=== PATIENT | male | born 1950 | race Caucasian/White ===

== ENCOUNTER 2016-07-11 07:12 | Inpatient (IN) | payer BC, OTHER ==
[~2016-07-11] VITALS: Ht 162.6 cm; Wt 128.8 kg
[~2016-07-11 07:12] MED LIST: AMLO5TAB2 PO; ASPI81TA28 PO; ATOR80TA PO; GABA1CAP4 PO; GLC500 PO; LAMO200T PO; PRAM1TAB6 PO; RIVA1TAB4 PO; SPR25 PO; SRQ100 PO
[2016-07-11] MEDS ORDERED: SODIUM CHLORIDE 0.9% 1000ML 1,000 ML IV ONE (07:30)
[2016-07-11] MEDS ORDERED: SODIUM CHLORIDE 0.9% 1000ML 1,000 ML IV STA (07:36)
[2016-07-11] MEDS ORDERED: ONDANSETRON INJ 2 MG/ML 2 ML VIAL IV STA ×2 (07:36→11:33)
[2016-07-11] MEDS ORDERED: MoRPHine SULFATE 10 MG/ML CARP/VIAL IV STA (07:40)
[2016-07-11 07:48] LABS: BASO % 0.2 %; BASO ABS # 0.03 K/uL (0-0.2); COMPLETE YES; EOS % 0.2 %; HEMATOCRIT 45.5 % (42-52); IG% 0.2 %; LYMPH % 6.7 %; LYMPH ABS # 0.89 K/uL (1.2-3.4); MEAN CELL VOLUME 86.7 fL (80-100); MEAN CORPUSCULAR HEMOGLOBIN 30.5 pg (25-34); MEAN CORPUSCULAR HGB CONC 35.2 g/dl (32-36); MEAN PLATELET VOLUME 10.6 fL (7.4-10.4); MONO % 5.2 %; NEUT % 87.5 %; PLATELET COUNT 221 K/uL (130-400); RED BLOOD COUNT 5.25 M/uL (4.7-6.1); WHITE BLOOD COUNT 13.22 K/uL (4.8-10.8)
[2016-07-11 08:06] LABS: BUN/CREATININE RATIO 14.9 (10-20); CREATININE 1.3 mg/dl (0.60-1.40); POTASSIUM 4.2 mmol/L (3.5-5.1)
[2016-07-11] MEDS ORDERED: OPTIRAY 320 IV PRN ×2 (08:15→17:30)
--- NOTE | 2016-07-11 08:39 | DIAGNOSTIC IMAGING REPORT ---
CHEST ONE VIEW PORTABLE CLINICAL HISTORY: confusion dyspnea COMPARISON STUDY: 01/15/2016 FINDINGS: Moderate cardiomegaly status post median sternotomy. This is stable from the prior exam. Slight plantar left lateral costophrenic angle also chronic. Lungs are clear. IMPRESSION: Chronic change. No acute process. Electronically signed by: Ministerio Gonzalez M.D. 07/11/2016 8:38 AM Dictated Date/Time: 07/11/2016 8:37 AM
[2016-07-11 09:59] LABS: URINE APPEARANCE CLEAR (CLEAR); URINE BILIRUBIN NEG (NEG); URINE COLOR YELLOW; URINE NITRITE NEG (NEG); URINE SPECIFIC GRAVITY 1.023 (1.000-1.030); UROBILINOGEN NEG (NEG)
[2016-07-11 10:03] LABS: MANUAL MICROSCOPIC REQUIRED? NO; REVIEW REQ? NO
--- NOTE | 2016-07-11 11:07 | DIAGNOSTIC IMAGING REPORT ---
ABDOMEN AND PELVIS CT WITH IV CONTRAST CT DOSE: 1108.51 mGycm HISTORY: Pain abd pain TECHNIQUE: Multiaxial CT images of the abdomen and pelvis were performed following the use of intravenous contrast. COMPARISON STUDY: 12/27/2014 FINDINGS: Lung bases are clear. Liver spleen and pancreas are unremarkable. Possible small gallstone the region of the gallbladder neck. Kidneys enhance uniformly. There are negative for hydronephrosis. Bowel pattern is nonobstructive. The appendix is normal. Bladder is midline. IMPRESSION: Small gallstone in the region of the gallbladder neck. Right upper quadrant ultrasonography is suggested. Study otherwise is negative Electronically signed by: Ministerio Gonzalez M.D. 07/11/2016 11:06 AM Dictated Date/Time: 07/11/2016 10:53 AM
--- NOTE | 2016-07-11 13:26 | DIAGNOSTIC IMAGING REPORT ---
ABDOMINAL ULTRASOUND, RIGHT UPPER QUADRANT HISTORY: Gallstone. COMPARISON: Right upper quadrant ultrasound December 28, [address] of the abdomen and pelvis July 11, 2016. FINDINGS: Heterogeneity of the liver is noted. Echogenic foci within the liver suggest trace portal venous gas. There is no biliary ductal dilatation. This study is compromised by suboptimal penetration. The liver is heterogeneous. There may be fatty infiltration of the liver. There is no right hydronephrosis. There is a suspected gallstone within the gallbladder. There is no gallbladder wall thickening. There may be minimal sludge within the gallbladder. IMPRESSION: 1. Branching echogenic foci within the liver consistent with portal venous gas. In retrospect, trace portal venous gas was shown on CT from earlier today with minimal venous gas adjacent to the stomach which may reflect the source. Close clinical monitoring is recommended. Discussed with Robbi Boucher at time of dictation. 2. Cholelithiasis. No evidence of acute cholecystitis. Electronically signed by: Richi Oconnor M.D. 07/11/2016 1:24 PM Dictated Date/Time: 07/11/2016 1:00 PM
[2016-07-11] MEDS ORDERED: METRONIDAZOLE 500MG / 100ML NSS IV STA (13:29)
[2016-07-11] MEDS ORDERED: CIPROFLOXACIN 400MG / 200ML D5W IV STA (13:29)
[2016-07-11] MEDS ORDERED: PROMETHAZINE HCL INJ 12.5 MG in SODIUM CHLORIDE 0.9% 50ML 50 ML IV STA (14:23)
--- NOTE | 2016-07-11 14:42 | Surgery Consultation ---
Consultation Date of Consultation: Jul 11, 2016. Attending Physician: Reason for Consultation: Abdominal pain, nausea, portal venous gas (Ellie Pena PA-C) History of Present Illness Yois presented to emergency department early this morning with complaint of nausea and abdominal pain. Abdominal pain located in mid abdomen, no radiation , currently 7/10 pain, and describes it as a "pressure". States he has had a few episodes of similar pain and nausea in the past few years but nothing was ever found to be the cause. States he was in the emergency room a few years ago with the same symptoms. States the pain got so bad he called the ambulance this time. Denies of any fever, chills, night sweats, vomiting, vomiting blood , change in bowel habits, diarrhea, constipation, or blood in stools. Yosi currently takes 81 mg of aspirin daily as well as Xarelto for atrial fibrillation. No other blood thinning agents. Past Medical history positive for CAD s/p bypass and coronary stenting as well as prediabetes. History of marijuana smoking however no other tobacco or alcohol. States he takes an occasional TUMS for heartburn but does not take daily PPI. No history of gastric ulcer. No history of gallstones or gallbladder problems. No history of abdominal surgeries. (Ellie Pena PA-C) Past Medical/Surgical History Medical Problems: (1) Sinus pause Status: Acute (2) Symptomatic bradycardia Status: Acute (Ellie Pena PA-C) Family History Patient reports no known family medical history. (Ellie Pena PA-C) Patient reports no known family medical history. (Kai Dunne M.D.) Social History Smoking Status: Never Smoker Smokeless Tobacco Use: No Alcohol Use: none Drug Use: marijuana (quit last week) Marital Status: single Housing Status: lives alone Occupation Status: employed (Ellie Pena PA-C) Allergies Coded Allergies: Penicillins (Verified Allergy, Unknown, UNKNOWN, 07/11/16) Sulfa Antibiotics (Verified Allergy, Unknown, `, 07/11/16) CLINT Inhibitors (Verified Adverse Reaction, Mild, COUGH, 07/11/16) Nitroglycerin (Verified Adverse Reaction, Unknown, NO NITROGLYCERIN DERIVATIVES PER DR MIRANDA 09/05/12 ADM-, 02/05/15) PT NOT AWARE OF THIS-HAS NITRO TO USE PRN Home Medications Scheduled Amlodipine Besylate (Norvasc), 1 TAB PO DAILY Aspirin (Aspirin Ec), 81 MG PO DAILY Atorvastatin Calcium (Lipitor), 40 MG PO DAILY Gabapentin (Gabapentin), 300 MG PO BID Lamotrigine (Lamictal), 400 MG PO DAILY Metformin HCl (Metformin HCl), 500 MG PO BID Pramipexole Dihydrochloride (Pramipexole Dihydrochlori), 1 MG PO DAILY Quetiapine Fumarate (Quetiapine Fumarate), 100 MG PO HS Rivaroxaban (Xarelto), 20 MG PO DAILY Spironolactone (Spironolactone), 25 MG PO DAILY Current Inpatient Medications Current Inpatient Medications Medications (Trade) Dose Ordered Sig/Christina Route Start Time Stop Time Status Last Admin Dose Admin Ioversol 100 ml 100 ml UD PRN IV 07/11/16 08:15 07/15/16 08:14 Promethazine HCl/ Sodium Chloride (Phenergan Inj/ Nss 50ml) 50.5 ml @ 204 mls/hr NOW STAT IV 07/11/16 14:23 07/11/16 14:37 (Ellie Pena ., PA-C) Review of Systems Constitutional: No chills, No fever, No sweats Cardiovascular: No chest pain Abdomen: + nausea, + pain, No GI bleeding, No constipation, No diarrhea, No vomiting Genitourinary - Male: No hematuria Endocrine: No fatigue (Ellie Pena ., PA-C) Physical Exam Date Time Temp Pulse Resp B/P Pulse Ox O2 Delivery O2 Flow Rate FiO2 07/11/16 12:14 37.6 82 20 140/98 97 Room Air 07/11/16 11:20 87 18 148/90 95 Room Air 07/11/16 09:35 84 20 149/82 97 Room Air 07/11/16 08:36 88 20 140/98 95 Room Air 07/11/16 07:35 97 07/11/16 07:26 36.6 102 20 152/99 96 Room Air General Appearance: WD/WN, no apparent distress (sleeping when encountered), + obese Head: normocephalic, atraumatic Eyes: sclerae normal ENT: hearing grossly normal Neck: supple Respiratory/Chest: no respiratory distress, no accessory muscle use Abdomen/GI: soft, no pulsatile mass, + tenderness (diffuse in the upper abdomen more so in epigastric region) Neurologic/Psych: alert, normal mood/affect, oriented x 3 Skin: normal color, warm/dry, no rash (Ellie Pena ., GABBY) Laboratory Results Last 24 Hours Test 07/11/16 07:20 07/11/16 09:25 White Blood Count 13.22 K/uL Red Blood Count 5.25 M/uL Hemoglobin 16.0 g/dL Hematocrit 45.5 % Mean Corpuscular Volume 86.7 fL Mean Corpuscular Hemoglobin 30.5 pg Mean Corpuscular Hemoglobin Concent 35.2 g/dl Platelet Count 221 K/uL Mean Platelet Volume 10.6 fL Neutrophils (%) (Auto) 87.5 % Lymphocytes (%) (Auto) 6.7 % Monocytes (%) (Auto) 5.2 % Eosinophils (%) (Auto) 0.2 % Basophils (%) (Auto) 0.2 % Neutrophils # (Auto) 11.56 K/uL Lymphocytes # (Auto) 0.89 K/uL Monocytes # (Auto) 0.69 K/uL Eosinophils # (Auto) 0.02 K/uL Basophils # (Auto) 0.03 K/uL RDW Standard Deviation 45.7 fL RDW Coefficient of Variation 14.3 % Immature Granulocyte % (Auto) 0.2 % Immature Granulocyte # (Auto) 0.03 K/uL Sodium Level 137 mmol/L Potassium Level 4.2 mmol/L Chloride Level 101 mmol/L Carbon Dioxide Level 24 mmol/L Anion Gap 12.0 mmol/L Blood Urea Nitrogen 19 mg/dl Creatinine 1.30 mg/dl Est Creatinine Clear Calc Drug Dose 73.1 ml/min Estimated GFR () 66.8 Estimated GFR (Non- 57.7 BUN/Creatinine Ratio 14.9 Random Glucose 237 mg/dl Calcium Level 9.0 mg/dl Total Bilirubin 1.1 mg/dl Direct Bilirubin 0.2 mg/dl Aspartate Amino Transf (AST/SGOT) 15 U/L Alanine Aminotransferase (ALT/SGPT) 28 U/L Alkaline Phosphatase 89 U/L Troponin I < 0.015 ng/ml Total Protein 8.0 gm/dl Albumin 4.0 gm/dl Lipase 73 U/L Urine Color YELLOW Urine Appearance CLEAR Urine pH 8.0 Urine Specific [place] 1.023 Urine Protein NEG Urine Glucose (UA) 2+ Urine Ketones TRACE Urine Occult Blood NEG Urine Nitrite NEG Urine Bilirubin NEG Urine Urobilinogen NEG Urine Leukocyte Esterase NEG ABDOMEN AND PELVIS CT WITH IV CONTRAST CT DOSE: 1108.51 mGycm HISTORY: Pain abd pain TECHNIQUE: Multiaxial CT images of the abdomen and pelvis were performed following the use of intravenous contrast. COMPARISON STUDY: 12/27/2014 FINDINGS: Lung bases are clear. Liver spleen and pancreas are unremarkable. Possible small gallstone the region of the gallbladder neck. Kidneys enhance uniformly. There are negative for hydronephrosis. Bowel pattern is nonobstructive. The appendix is normal. Bladder is midline. IMPRESSION: Small gallstone in the region of the gallbladder neck. Right upper quadrant ultrasonography is suggested. Study otherwise is negative ABDOMINAL ULTRASOUND, RIGHT UPPER QUADRANT HISTORY: Gallstone. COMPARISON: Right upper quadrant ultrasound December 28, [address] of the abdomen and pelvis July 11, 2016. FINDINGS: Heterogeneity of the liver is noted. Echogenic foci within the liver suggest trace portal venous gas. There is no biliary ductal dilatation. This study is compromised by suboptimal penetration. The liver is heterogeneous. There may be fatty infiltration of the liver. There is no right hydronephrosis. There is a suspected gallstone within the gallbladder. There is no gallbladder wall thickening. There may be minimal sludge within the gallbladder. IMPRESSION: 1. Branching echogenic foci within the liver consistent with portal venous gas. In retrospect, trace portal venous gas was shown on CT from earlier today with minimal venous gas adjacent to the stomach which may reflect the source. Close clinical monitoring is recommended. Discussed with Robbi Boucher at time of dictation. 2. Cholelithiasis. No evidence of acute cholecystitis. (Ellie Pena ., NATE-C) Assessment & Plan Assessment: Portal Venous Gas Cholelithiasis Epigastric abdominal pain with Nausea - vitals stable - epigastric and upper abdominal pain on examination - abdomen soft and nondistended , no peritonitis or rigidity. PLAN: Recommend broad spectrum antibiotics- Cipro/flagyl IV pain and nausea management Kept NPO GI consult Possibly may need upper endoscopy to rule out any gastric ulcer/ severe PUD Will continue to follow Dr. Dunne has seen and examined patient agrees with assessment and plan. (Ellie Pena ., NATE-C) Seen and examined Agree with above No peritoneal signs IV abx and GI consult. (Kai Dunne M.D.)
[2016-07-11] MEDS ORDERED: MoRPHine SULFATE 4 MG/ML 1 ML CARP\\VIAL IV STA (15:21)
[2016-07-11] MEDS ORDERED: CIPROFLOXACIN 400MG / 200ML D5W ONE (16:03)
[2016-07-11] MEDS ORDERED: MAGNESIUM HYDROXIDE SUSP 30 ML UDC PO PRN (17:15)
[2016-07-11] MEDS ORDERED: ACETAMINOPHEN 325 MG TAB PO PRN (17:15)
[2016-07-11] MEDS ORDERED: ALUMINUM/MAGNESIUM/SIMETH (MAALOX MAX) 30 ML UDC PO PRN (17:15)
--- NOTE | 2016-07-11 17:48 | EMERGENCY ROOM VISIT NOTE ---
ED Visit Note First contact with patient: 07:16 Chief Complaint: Abdominal pain. History of Present Illness: Mr. Wong is a 66 year-old white male is brought into the ED via ambulance complaining of epigastric abdominal pain. Historically patient reports she has a history of coronary artery disease and related diseases. He reports of the last 2 years he has been having abdominal pain; he reports multiple tests have been done and no cause for his pain was identified. I did review his medical records and he's had ongoing epigastric and right upper quadrant pain with testing to rule out acute cholecystitis. He has had ultrasounds, ERCP and CT with no significant reason to believe his ongoing pain is related to his gallbladder. Additionally he reports she's been tried on multiple medications and then seems to be working. Additionally patient reports he has been feeling slightly tired last few weeks and saw his natural resources technician in the office yesterday. He reports the natural resources technician told him he was in a controlled rate atrial fibrillation; he reports they discussed the need to convert his rhythm to sinus and they did not feel was necessary at this time. Patient reports he was awake and approximately 1 AM this morning, approximately 6-7 hours ago, he reports an acute onset of lower epigastric abdominal pain. He reports since that time his pain has been constant and gradually worsening in intensity. He describes his pain as a sharp stabbing discomfort. He rates his discomfort 9/10. The pain is nonradiating. He has not identified any aggravating or alleviating factors related to the pain. He has not taken any medications for pain prior to arrival at the hospital. This pain started approximately 5-6 hours after his last meal. Associated with his pain he reports he has been having chills but no kwadwo fevers and weighs of nausea with vomiting. Patient denies sweats, skin eruptions, skin color changes, upper respiratory tract symptoms, shortness of breath, chest pain, diarrhea, constipation, rectal bleeding, black/tarry stools, urinary symptoms, hematuria, back/flank pain. Review of Systems: As noted above in history of present illness. All body systems were reviewed and found to be negative as noted above. Past Medical History: As previously noted, arthritis, atrial fibrillation, hypertension, hypercholesterolemia morbid obesity, status post CABG and stent placement Current Medications: Medications Dose Route/Sig Max Daily Dose Days Date Category Norvasc (Amlodipine Besylate) 5 Mg Tab 1 Tab PO DAILY 30 01/15/16 Rx Pramipexole Dihydrochlori (Pramipexole Dihydrochloride) 1 Mg Tab 1 Mg PO DAILY 01/13/16 Reported Gabapentin 300 Mg Cap 300 Mg PO BID 01/13/16 Reported Quetiapine Fumarate 100 Mg Tab 100 Mg PO HS 01/13/16 Reported Spironolactone 25 Mg Tab 25 Mg PO DAILY 01/13/16 Reported Metformin HCl 500 Mg Tab 500 Mg PO BID 01/13/16 Reported Xarelto (Rivaroxaban) 20 Mg Tab 20 Mg PO DAILY 11/09/12 Reported Lipitor (Atorvastatin Calcium) 80 Mg Tab 40 Mg PO DAILY 09/04/12 Reported Aspirin Ec (Aspirin) 81 Mg Tab 81 Mg PO DAILY 09/04/12 Reported Lamictal (Lamotrigine) 200 Mg Tab 400 Mg PO DAILY 09/04/12 Reported Allergies to Medications: Haseeb inhibitors, nitroglycerin, penicillin, sulfa. Social History: Patient is currently employed; he feels safe in his home environment; he denies tobacco use and alcohol use. Physical Examination: Vital Signs: Date Time Temp Pulse Resp B/P Pulse Ox O2 Delivery O2 Flow Rate FiO2 07/11/16 17:23 89 18 151/87 96 Room Air 07/11/16 15:36 94 18 164/84 95 Room Air 07/11/16 15:11 86 07/11/16 15:02 96 18 155/86 93 Room Air 07/11/16 14:10 98 20 143/97 95 Room Air 07/11/16 12:14 37.6 82 20 140/98 97 Room Air 07/11/16 11:20 87 18 148/90 95 Room Air 07/11/16 09:35 84 20 149/82 97 Room Air 07/11/16 08:36 88 20 140/98 95 Room Air 07/11/16 07:35 97 07/11/16 07:26 36.6 102 20 152/99 96 Room Air GENERAL: 66-year-old male in moderate distress due to pain, nontoxic-appearing, afebrile and hemodynamically stable. NEUROLOGICAL: Awake, alert and oriented to person, place and time. Answering questions appropriately and following commands. Good hand eye coordination. SKIN: Warm, dry and pink. No soft tissue eruptions or trauma noted. HEENT: Atraumatic and normocephalic. PERRLA. Sclera white and conjunctiva pink. Oral cavity moist and pink. Pharynx is nonerythematous or edematous. Speech normal. No lymphadenopathy. Trachea midline. No jugular venous distention. BACK: No tenderness over the bony spine. No CVA tenderness. THORAX: Lungs sounds are clear to auscultation and equal bilaterally with symmetrical chest wall. No wheezing, rales or rhonchi. No crepitus, tenderness , subcutaneous air or deformities noted. HEART: Regular rate and rhythm. No gallops, rubs or murmurs are appreciated. ABDOMEN: Obese and soft with moderate tenderness throughout the mid section of the upper abdomen just inferior to the epigastric region. Initially he had some moderate guarding but after medication guarding resolved. I do not appreciate any signs of peritonitis. Decreased bowel sounds in all quadrants. No rigidity or organomegaly. EXTREMITIES: Moves all extremities well on command and with purpose. All distal neurovascular statuses are intact and equal bilaterally. ED Course: Patient is assessed as noted above. Laboratory Testing: Test 07/11/16 07:20 07/11/16 09:25 07/11/16 17:36 Range/Units White Blood Count 13.22 4.8-10.8 K/uL Red Blood Count 5.25 4.7-6.1 M/uL Hemoglobin 16.0 14.0-18.0 g/dL Hematocrit 45.5 42-52 % Mean Corpuscular Volume 86.7 80-100 fL Mean Corpuscular Hemoglobin 30.5 25-34 pg Mean Corpuscular Hemoglobin Concent 35.2 32-36 g/dl Platelet Count 221 130-400 K/uL Mean Platelet Volume 10.6 7.4-10.4 fL Neutrophils (%) (Auto) 87.5 % Lymphocytes (%) (Auto) 6.7 % Monocytes (%) (Auto) 5.2 % Eosinophils (%) (Auto) 0.2 % Basophils (%) (Auto) 0.2 % Neutrophils # (Auto) 11.56 1.4-6.5 K/uL Lymphocytes # (Auto) 0.89 1.2-3.4 K/uL Monocytes # (Auto) 0.69 0.11-0.59 K/uL Eosinophils # (Auto) 0.02 0-0.5 K/uL Basophils # (Auto) 0.03 0-0.2 K/uL RDW Standard Deviation 45.7 36.4-46.3 fL RDW Coefficient of Variation 14.3 11.5-14.5 % Immature Granulocyte % (Auto) 0.2 % Immature Granulocyte # (Auto) 0.03 0.00-0.02 K/uL Sodium Level 137 136-145 mmol/L Potassium Level 4.2 3.5-5.1 mmol/L Chloride Level 101 98-107 mmol/L Carbon Dioxide Level 24 21-32 mmol/L Anion Gap 12.0 3-11 mmol/L Blood Urea Nitrogen 19 7-18 mg/dl Creatinine 1.30 0.60-1.40 mg/dl Est Creatinine Clear Calc Drug Dose 73.1 ml/min Estimated GFR () 66.8 Estimated GFR (Non- 57.7 BUN/Creatinine Ratio 14.9 10-20 Random Glucose 237 70-99 mg/dl Calcium Level 9.0 8.5-10.1 mg/dl Total Bilirubin 1.1 0.2-1 mg/dl Direct Bilirubin 0.2 0-0.2 mg/dl Aspartate Amino Transf (AST/SGOT) 15 15-37 U/L Alanine Aminotransferase (ALT/SGPT) 28 12-78 U/L Alkaline Phosphatase 89 45-117 U/L Troponin I < 0.015 0-0.045 ng/ml Total Protein 8.0 6.4-8.2 gm/dl Albumin 4.0 3.4-5.0 gm/dl Lipase 73 73-393 U/L Urine Color YELLOW Urine Appearance CLEAR CLEAR Urine pH 8.0 4.5-7.5 Urine Specific [place] 1.023 1.000-1.030 Urine Protein NEG NEG Urine Glucose (UA) 2+ NEG Urine Ketones TRACE NEG Urine Occult Blood NEG NEG Urine Nitrite NEG NEG Urine Bilirubin NEG NEG Urine Urobilinogen NEG NEG Urine Leukocyte Esterase NEG NEG Blood Culture: Pending Chest X-Ray: Was read by myself and shows no acute infiltrates, effusions or pneumothorax. Stable moderate cardiomegaly and status post sternotomy. Slightly blunting of the left costophrenic angle. No free air under the diaphragm. IV Contrast Abdominal/Pelvic CT: Was reviewed by myself and read by the radiologist showing small gallstone possibly in the gallbladder neck with no other acute findings and no signs of bowel obstruction or free air. Gallbladder Ultrasound: Was reviewed by myself and read by the radiologist showing branching echogenic focus within the liver consistent with personal venous gas. Radiologist reports he did compare this with previous CT today and showed minimal venous gas adjacent to the stomach which could possibly indicate a source for the portal gas. He also notes that there is cholelithiasis without evidence of acute cholecystitis. Patient was hydrated with normal saline and he received a total of 10 mg of morphine IV for pain, 8 mg of Zofran IV for nausea and ciprofloxacin and Flagyl were started for antibiotic coverage. Patient was reassessed multiple times during his stay in the emergency department. Patient's case was reviewed with Dr. Maharaj; she apparently assessed the patient we agreed on diagnostic approach, treatment, disposition and plan. Patient's case was consulted with Dr. Bangura, general surgery; he recommended antibiotic therapy, general medicine admission and GI and surgical consultation. Patient's case was consulted with case management and Dr. Tierney, [facility]; for possible observation/admission. Dr Tierney recommended that the patient the physically evaluated by Dr. Bangura to make sure there is no acute surgical needs. I did recontact Dr. Bangura per Dr. Tierney requests and he agreed to physically evaluate the patient. Patient was educated about tonight's findings. Clinical Impression: Acute epigastric pain. Portal venous gas from possible stomach source. Decision-Making: Initially my differential diagnosis I considered cholelithiasis , hepatitis, pancreatitis, perforated viscus, acute coronary syndrome, gastritis and other causes. Disposition and Plan: Patient be brought in the hospital by Dr. Tierney; please see his notes and orders for final disposition and plan.
[2016-07-11] MEDS ORDERED: GLUCOSE 10 TABS/TUBE PO PRN (18:00)
[2016-07-11] MEDS ORDERED: DEXTROSE 50% 50 ML SYR IV PRN (18:00)
[2016-07-11] MEDS ORDERED: GLUCAGON FOR INJ 1 MG VIAL SQ PRN (18:00)
[2016-07-11] MEDS ORDERED: GLUCOSE 40% GEL 15 GM TUBE PO PRN (18:00)
--- NOTE | 2016-07-11 18:02 | History and Physical ---
History & Physical Date & Time of Service: Jul 11, 2016 at 16:20 Chief Complaint: Abdominal Pain Primary Care Physician: Garret Rodrigez D.O. History of Present Illness Patient is a 66 year old male with a past medical history of CAD, DM, FL, CABG, PCI with Stent, and Sleep Apnea, that presents to the ED with a 1 day history of abdominal pain. At 12 pm last night the patient began to have nausea, followed by crampy abdominal pain. The cramps progressively worsened, until he was having constant 10/10 diffuse pain throughout the abdomen. The patient reports he has had multiple episodes of this time of pain, the last of which occurred 2-3 years ago. He was also having vomiting that began as clear with some bile and then began vomiting up food from yesterday. He denies any blood in his vomit. He denies any recent diarrhea, fevers, chills, headaches, or other recent abdominal pain. The patient denies any history of abdominal surgeries. Patient denies any history of reflux, gastritis, or peptic ulcer disease. Take Tums every couple months. Yesterday the patient was seen by Dr. Black for his atrial fibrillation. He was in Afib yesterday and had his amiodarone and beta blockers discontinued due to bradycardia. He is currently on Xarelto and Aspirin. Past Medical/Surgical History Medical Problems: (1) Ac Myocard Infarc Oth Anter Wall,Init Episode Care Status: Resolved (2) Arthritis Status: Chronic (3) Atrial Fibrillation Status: Chronic (4) History of - coronary artery bypass grafting Status: Resolved (5) Hypertension Nos Status: Chronic (6) Morbid Obesity Status: Chronic (7) Percutaneous Translum Coron Angioplasty Status Status: Resolved (8) Pure Hypercholesterolem Status: Chronic Surgical Problems: (1) Hx of CABG Status: Resolved Family History Patient reports no known family medical history. Mother of cancer (unsure type) Social History Smoking Status: Former Smoker Smokeless Tobacco Use: No Alcohol Use: none Drug Use: marijuana (quit last week) Marital Status: single Occupational Status: employed Immunizations History of Influenza Vaccine: No Influenza Vaccine Date: Feb 06, 2011 History of Tetanus Vaccine?: No History of Pneumococcal: No Pneumococcal Date: Feb 06, 2011 History of Hepatitis B Vaccine: No Multi-Drug Resistant Organisms History of MDRO: No Allergies Coded Allergies: Penicillins (Verified Allergy, Unknown, UNKNOWN, 07/11/16) Sulfa Antibiotics (Verified Allergy, Unknown, `, 07/11/16) CLINT Inhibitors (Verified Adverse Reaction, Mild, COUGH, 07/11/16) Nitroglycerin (Verified Adverse Reaction, Unknown, NO NITROGLYCERIN DERIVATIVES PER DR MIRANDA 09/05/12 ADM-, 02/05/15) PT NOT AWARE OF THIS-HAS NITRO TO USE PRN Home Medications Scheduled Amlodipine Besylate (Norvasc), 1 TAB PO DAILY Aspirin (Aspirin Ec), 81 MG PO DAILY Atorvastatin Calcium (Lipitor), 40 MG PO DAILY Gabapentin (Gabapentin), 300 MG PO BID Lamotrigine (Lamictal), 400 MG PO DAILY Metformin HCl (Metformin HCl), 500 MG PO BID Pramipexole Dihydrochloride (Pramipexole Dihydrochlori), 1 MG PO DAILY Quetiapine Fumarate (Quetiapine Fumarate), 100 MG PO HS Rivaroxaban (Xarelto), 20 MG PO DAILY Spironolactone (Spironolactone), 25 MG PO DAILY Review of Systems Constitutional: No chills, No fatigue, No fever, No sweats, No weakness, No weight loss Respiratory: No cough, No shortness of breath, No sputum Cardiovascular: No chest pain, No edema, No orthopnea Abdomen: + nausea, + pain, + vomiting, No GI bleeding, No constipation, No diarrhea Genitourinary - Male: No hematuria Endocrine: No fatigue Physical Exam Vital Signs Date Time Temp Pulse Resp B/P Pulse Ox O2 Delivery O2 Flow Rate FiO2 07/11/16 15:36 94 18 164/84 95 Room Air 07/11/16 15:11 86 07/11/16 15:02 96 18 155/86 93 Room Air 07/11/16 14:10 98 20 143/97 95 Room Air 07/11/16 12:14 37.6 82 20 140/98 97 Room Air 07/11/16 11:20 87 18 148/90 95 Room Air 07/11/16 09:35 84 20 149/82 97 Room Air 07/11/16 08:36 88 20 140/98 95 Room Air 07/11/16 07:35 97 07/11/16 07:26 36.6 102 20 152/99 96 Room Air General Appearance: WD/WN, + mild distress Respiratory/Chest: chest non-tender, lungs clear, normal breath sounds Cardiovascular: no gallop, no murmur, + irregularly irregular Abdomen/GI: normal bowel sounds, soft, no pulsatile mass, + tenderness (Tender to palpation in all 4 quadrants) Extremities/Musculoskelatal: no calf tenderness, + swelling (Left leg swelling 2/2 vein removal for bypass surgery) Neurologic/Psych: alert, oriented x 3 Diagnostics Laboratory Results Results Past 24 Hours Test 07/11/16 07:20 07/11/16 09:25 Range/Units White Blood Count 13.22 4.8-10.8 K/uL Red Blood Count 5.25 4.7-6.1 M/uL Hemoglobin 16.0 14.0-18.0 g/dL Hematocrit 45.5 42-52 % Mean Corpuscular Volume 86.7 80-100 fL Mean Corpuscular Hemoglobin 30.5 25-34 pg Mean Corpuscular Hemoglobin Concent 35.2 32-36 g/dl Platelet Count 221 130-400 K/uL Mean Platelet Volume 10.6 7.4-10.4 fL Neutrophils (%) (Auto) 87.5 % Lymphocytes (%) (Auto) 6.7 % Monocytes (%) (Auto) 5.2 % Eosinophils (%) (Auto) 0.2 % Basophils (%) (Auto) 0.2 % Neutrophils # (Auto) 11.56 1.4-6.5 K/uL Lymphocytes # (Auto) 0.89 1.2-3.4 K/uL Monocytes # (Auto) 0.69 0.11-0.59 K/uL Eosinophils # (Auto) 0.02 0-0.5 K/uL Basophils # (Auto) 0.03 0-0.2 K/uL RDW Standard Deviation 45.7 36.4-46.3 fL RDW Coefficient of Variation 14.3 11.5-14.5 % Immature Granulocyte % (Auto) 0.2 % Immature Granulocyte # (Auto) 0.03 0.00-0.02 K/uL Sodium Level 137 136-145 mmol/L Potassium Level 4.2 3.5-5.1 mmol/L Chloride Level 101 98-107 mmol/L Carbon Dioxide Level 24 21-32 mmol/L Anion Gap 12.0 3-11 mmol/L Blood Urea Nitrogen 19 7-18 mg/dl Creatinine 1.30 0.60-1.40 mg/dl Est Creatinine Clear Calc Drug Dose 73.1 ml/min Estimated GFR () 66.8 Estimated GFR (Non- 57.7 BUN/Creatinine Ratio 14.9 10-20 Random Glucose 237 70-99 mg/dl Calcium Level 9.0 8.5-10.1 mg/dl Total Bilirubin 1.1 0.2-1 mg/dl Direct Bilirubin 0.2 0-0.2 mg/dl Aspartate Amino Transf (AST/SGOT) 15 15-37 U/L Alanine Aminotransferase (ALT/SGPT) 28 12-78 U/L Alkaline Phosphatase 89 45-117 U/L Troponin I < 0.015 0-0.045 ng/ml Total Protein 8.0 6.4-8.2 gm/dl Albumin 4.0 3.4-5.0 gm/dl Lipase 73 73-393 U/L Urine Color YELLOW Urine Appearance CLEAR CLEAR Urine pH 8.0 4.5-7.5 Urine Specific [place] 1.023 1.000-1.030 Urine Protein NEG NEG Urine Glucose (UA) 2+ NEG Urine Ketones TRACE NEG Urine Occult Blood NEG NEG Urine Nitrite NEG NEG Urine Bilirubin NEG NEG Urine Urobilinogen NEG NEG Urine Leukocyte Esterase NEG NEG Microbiology Results 07/11/16 Blood Culture, Received Pending 07/11/16 Blood Culture, Received Pending CXR normal Impression Assessment and Plan Patient is a 66 year old male that presents with a 1 day history of abdominal pain. 1) Acute Abdominal Pain - Cholecystitis vs Gastric Ulcer/ Severe PUD - CT Abd Pelvis: Small Gallstone at neck fo gallbladder, Portal venous gas adjacent to stomach - US RUQ: Cholelithiasis, no evidence of acute cholelithiasis. Branching echogenic foci within liver consistent w/ protal venous gas - CTA Abdomen/Pelvis ordered to r/o Aortic Dissection - Vital wnl and hemodynamically stable - Admit to telemetry - IV NS 150ml/hr - Ciprofloxacin 400mg IV q12h - Flagyl 500mg IV q8h - Surgical Consult - Recommend broad spectrum abx and GI f/u with possible EGD - GI Consult placed 2) History of FL - EKG - Troponin - Admit to telemetry 3) Diabetes - Accu-checks with Novolog coverage 4) Hypertension - Amlodipine 5mg PO Daily 5) Atrial Fibrillation - Xarelto at home, currently holding in case of EGD in morning - Recently had spironolactone and beta atilio held due to bradycardia by Dr. Black 6) Hyperlipidemia - Atorvastatin 40mg PO Daily 7) Neuro - Gabapentin 300mg PO BID - Lamictal 400mg PO Daily - Quetiapine Fumarate 100mg PO HS 8) Restless Leg Syndrome - Pramipexole Dihydrochloride 9) DVT Prophylaxis - Heparin 5,000 units q12 Level of Care Telemetry Resuscitation Status FULL RESUSCITATION VTE Prophylaxis VTE Risk Assessment Done? Y/N: Yes Risk Level: Moderate Given or contraindicated: Unfractionated heparin SQ
[2016-07-11 18:56] VITALS: BP 164/103; PULSE 98; TEMP 36.4; Ht 162.6 cm; Wt 128.8 kg
[2016-07-11] MEDS ORDERED: PANTOprazole INJ 40 MG in SYRINGE 0 ML IV ONE (20:00)
[2016-07-11] MEDS: SODIUM CHLORIDE 0.9% 1000ML 1,000 ML IV SCH (20:19)
[2016-07-11] MEDS: ONDANSETRON INJ 2 MG/ML 2 ML VIAL IV PRN (20:19)
[2016-07-11 20:27] VITALS: O2SAT 95
[2016-07-11 20:53] LABS: INR 1.1 (0.9-1.1); PROTHROMBIN TIME (PATIENT) 11.8 SECONDS (9.0-12.0)
[2016-07-11] MEDS ORDERED: INSULIN ASPART 100 UNITS/ML 3 ML PEN SC SCH (21:00)
--- NOTE | 2016-07-11 21:22 | DIAGNOSTIC IMAGING REPORT ---
CT ANGIO ABD/PELVIS WITH CONTRAST CT DOSE: 1982.12 mGy.cm CLINICAL HISTORY: Severe abdominal pain. Possible aortic dissection. TECHNIQUE: The patient was scanned in a dynamic helical fashion during intravenous administration of 120 cc Optiray 320. MIP imaging was performed. COMPARISON STUDY: 07/11/2016 FINDINGS: Imaging through the lung bases reveal mild dependent atelectatic change. The heart is mildly enlarged. No hepatic masses are visualized. There is cholelithiasis. No splenic masses are visualized. No pancreatic masses are visualized. There is slight haziness of the peripancreatic fat adjacent the pancreatic head. Minimal pancreatitis cannot be excluded. No adrenal masses are visualized. No renal masses are visualized on this arterial phase study. There are no transition zones indicate bowel obstruction. The appendix appears normal. There is no acute diverticulitis. There is no ascites. There is no free air. There is no abdominal aortic dilatation. There are no intimal flaps to indicate dissection. There is no evidence of superior mesenteric or celiac artery stenosis. There is no evidence of renal artery stenosis. Inferior mesenteric artery is patent. There is no iliac artery stenosis. There are no abnormal pelvic masses. IMPRESSION: 1. No evidence of abdominal aortic aneurysm or dissection 2. No evidence of celiac or superior mesenteric artery stenosis 3. No evidence of renal artery stenosis 4. Cholelithiasis 5. Minimal haziness of the peripancreatic fat at the level the pancreatic head Electronically signed by: Prince Barboza M.D. 07/11/2016 9:21 PM Dictated Date/Time: 07/11/2016 9:13 PM
[2016-07-11] MEDS: QUETIAPINE FUMARATE 100 MG TAB PO SCH (21:31)
[2016-07-11] MEDS: GABAPENTIN 300 MG CAP PO SCH (21:31)
[2016-07-11] MEDS: METRONIDAZOLE / NSS 500 MG in PREMIXED NSS 100 ML IV SCH (21:35)
[2016-07-11] MEDS ORDERED: NURSING VERBAL MED ORDER ONE (23:30)
[2016-07-11] MEDS: HEPARIN SOD 5000 UNIT/0.5 ML CARP SQ SCH (23:44)
[2016-07-11 23:51] VITALS: BP 135/89; PULSE 96; TEMP 36.9; O2SAT 94
[2016-07-12] MEDS ORDERED: INSULIN ASPART 100 UNITS/ML 3 ML PEN SC SCH (03:00)
[2016-07-12 03:14] VITALS: BP 125/88; PULSE 86; TEMP 36.4; O2SAT 93
[2016-07-12] MEDS: CIPROFLOXACIN / D5W 400 MG in PREMIXED IN D5W 200 ML IV SCH ×2 (04:05→15:28)
[2016-07-12] MEDS: SODIUM CHLORIDE 0.9% 1000ML 1,000 ML IV SCH ×3 (04:05→21:21)
[2016-07-12] MEDS: METRONIDAZOLE / NSS 500 MG in PREMIXED NSS 100 ML IV SCH ×3 (06:02→21:18)
[2016-07-12] MEDS: INSULIN ASPART 100 UNITS/ML 3 ML PEN SC SCH ×4 (06:37→16:20)
[2016-07-12 06:39] LABS: BASO % 0.3 %; BASO ABS # 0.03 K/uL (0-0.2); COMPLETE YES; HEMATOCRIT 42.9 % (42-52); IG% 0.3 %; LYMPH % 19.4 %; LYMPH ABS # 2.31 K/uL (1.2-3.4); MEAN CELL VOLUME 87.4 fL (80-100); MEAN CORPUSCULAR HEMOGLOBIN 29.9 pg (25-34); MEAN CORPUSCULAR HGB CONC 34.3 g/dl (32-36); MONO % 6.7 %; NEUT % 72.3 %; PLATELET COUNT 184 K/uL (130-400); RED BLOOD COUNT 4.91 M/uL (4.7-6.1); WHITE BLOOD COUNT 11.88 K/uL (4.8-10.8)
[2016-07-12 07:14] LABS: BUN/CREATININE RATIO 13.3 (10-20); CALCIUM 8.5 mg/dl (8.5-10.1); CHOLESTEROL/HDL RATIO 2.9; CREATININE 0.98 mg/dl (0.60-1.40); MAGNESIUM 2.1 mg/dl (1.8-2.4); PHOSPHORUS 2.2 mg/dl (2.5-4.9); POTASSIUM 3.6 mmol/L (3.5-5.1)
--- NOTE | 2016-07-12 07:28 | Surgery Progress Note ---
Surgery Progress Note Date of Service Jul 12, 2016. Subjective Post OP Day: HD 2 + diet (NPO), + feeling well, + flatus, No complaints, No nausea, No vomiting Objective Vital Signs: Date Time Temp Pulse Resp B/P Pulse Ox O2 Delivery O2 Flow Rate FiO2 07/12/16 04:00 Room Air 07/12/16 03:14 36.4 86 22 125/88 93 Room Air 07/12/16 00:00 Room Air 07/11/16 23:51 36.9 96 16 135/89 94 Room Air 07/11/16 20:27 95 Room Air 07/11/16 19:58 54 16 96 Room Air 07/11/16 18:56 36.4 98 20 164/103 07/11/16 18:19 89 16 148/80 97 Room Air 07/11/16 17:23 89 18 151/87 96 Room Air 07/11/16 15:36 94 18 164/84 95 Room Air 07/11/16 15:11 86 07/11/16 15:02 96 18 155/86 93 Room Air 07/11/16 14:10 98 20 143/97 95 Room Air 07/11/16 12:14 37.6 82 20 140/98 97 Room Air 07/11/16 11:20 87 18 148/90 95 Room Air 07/11/16 09:35 84 20 149/82 97 Room Air 07/11/16 08:36 88 20 140/98 95 Room Air 07/11/16 07:35 97 07/11/16 07:26 36.6 102 20 152/99 96 Room Air General Appearance: WD/WN, no apparent distress Head: normocephalic, atraumatic Neck: supple, trachea midline Respiratory/Chest: lungs clear Cardiovascular: regular rate, rhythm, no gallop, no murmur Abdomen: normal bowel sounds, non tender, non distended, soft Extremities: normal range of motion, no pedal edema Laboratory Results: Results Past 24 Hours Test 07/11/16 09:25 07/11/16 17:58 07/11/16 20:09 07/11/16 20:52 Range/Units Urine Color YELLOW Urine Appearance CLEAR CLEAR Urine pH 8.0 4.5-7.5 Urine Specific [place] 1.023 1.000-1.030 Urine Protein NEG NEG Urine Glucose (UA) 2+ NEG Urine Ketones TRACE NEG Urine Occult Blood NEG NEG Urine Nitrite NEG NEG Urine Bilirubin NEG NEG Urine Urobilinogen NEG NEG Urine Leukocyte Esterase NEG NEG Troponin I < 0.015 0-0.045 ng/ml Prothrombin Time 11.8 9.0-12.0 SECONDS Prothromb Time International Ratio 1.1 0.9-1.1 Bedside Glucose 131 70-99 mg/dl Test 07/11/16 23:50 07/12/16 05:53 07/12/16 06:11 Range/Units Bedside Glucose 143 146 70-99 mg/dl White Blood Count 11.88 4.8-10.8 K/uL Red Blood Count 4.91 4.7-6.1 M/uL Hemoglobin 14.7 14.0-18.0 g/dL Hematocrit 42.9 42-52 % Mean Corpuscular Volume 87.4 80-100 fL Mean Corpuscular Hemoglobin 29.9 25-34 pg Mean Corpuscular Hemoglobin Concent 34.3 32-36 g/dl Platelet Count 184 130-400 K/uL Mean Platelet Volume 10.0 7.4-10.4 fL Neutrophils (%) (Auto) 72.3 % Lymphocytes (%) (Auto) 19.4 % Monocytes (%) (Auto) 6.7 % Eosinophils (%) (Auto) 1.0 % Basophils (%) (Auto) 0.3 % Neutrophils # (Auto) 8.59 1.4-6.5 K/uL Lymphocytes # (Auto) 2.31 1.2-3.4 K/uL Monocytes # (Auto) 0.80 0.11-0.59 K/uL Eosinophils # (Auto) 0.12 0-0.5 K/uL Basophils # (Auto) 0.03 0-0.2 K/uL RDW Standard Deviation 46.4 36.4-46.3 fL RDW Coefficient of Variation 14.5 11.5-14.5 % Immature Granulocyte % (Auto) 0.3 % Immature Granulocyte # (Auto) 0.03 0.00-0.02 K/uL Sodium Level 139 136-145 mmol/L Potassium Level 3.6 3.5-5.1 mmol/L Chloride Level 104 98-107 mmol/L Carbon Dioxide Level 25 21-32 mmol/L Anion Gap 10.0 3-11 mmol/L Blood Urea Nitrogen 13 7-18 mg/dl Creatinine 0.98 0.60-1.40 mg/dl Est Creatinine Clear Calc Drug Dose 93.8 ml/min Estimated GFR () 94.1 Estimated GFR (Non- 81.2 BUN/Creatinine Ratio 13.3 10-20 Random Glucose 158 70-99 mg/dl Calcium Level 8.5 8.5-10.1 mg/dl Phosphorus Level 2.2 2.5-4.9 mg/dl Magnesium Level 2.1 1.8-2.4 mg/dl Triglycerides Level 83 0-150 mg/dl Cholesterol Level 113 0-200 mg/dl HDL Cholesterol 39 mg/dl LDL Cholesterol, Calculated 57 mg/dl VLDL Cholesterol, Calculated 17 mg/dl Cholesterol/HDL Ratio 2.9 Microbiology Results 07/11/16 Blood Culture, Received Pending 07/11/16 Blood Culture, Received Pending Assessment & Plan Abdominal pain with trace portal gas; gastritis/pancreatitis -await GI consult -IV abx -completely asymptomatic this AM -can begin diet once cleared by GI -asymptomatic gallstones -wants to go home; no surgical issues
[2016-07-12 07:49] VITALS: BP 129/63; PULSE 80; TEMP 36.8; O2SAT 98
[2016-07-12] MEDS: GABAPENTIN 300 MG CAP PO SCH ×2 (07:54→21:18)
[2016-07-12] MEDS: AMLODIPINE BESYLATE 5 MG TAB PO SCH (07:55)
[2016-07-12] MEDS: ATORVASTATIN 40 MG TAB PO SCH (07:55)
[2016-07-12] MEDS: ASPIRIN 81 MG ECTAB PO SCH (07:55)
[2016-07-12] MEDS: PANTOprazole INJ 40 MG in SYRINGE 0 ML IV SCH ×2 (07:56→21:18)
[2016-07-12] MEDS ORDERED: PRAMIPEXOLE DIHYDROCHLORIDE 0.5 MG TAB PO SCH (09:00)
[2016-07-12] MEDS: ONDANSETRON INJ 2 MG/ML 2 ML VIAL IV PRN (10:26)
[2016-07-12] MEDS: HEPARIN SOD 5000 UNIT/0.5 ML CARP SQ SCH ×2 (10:26→21:14)
[2016-07-12 11:53] VITALS: BP 131/62; PULSE 84; TEMP 36.5; O2SAT 98
[2016-07-12] MEDS: MoRPHine SULFATE 2 MG/ML CARP IV PRN ×3 (12:59→22:54)
--- NOTE | 2016-07-12 14:53 | Hospitalist Progress Note ---
Hospitalist Progress Note Date of Service Jul 12, 2016. (Pham Osman ., PA-C) Subjective Pt evaluation today including: conversation w/ patient, physical exam, chart review, lab review, review of studies, conversation w/ loss control consultant (spoke with Dr. Dunne), review of inpatient medication list Pain: 6/10 dull abdominal pain PO Intake: NPO Voiding: no voiding problems Patient reports that he did not have any abdominal pain early this morning, but the pain did begin to creep back and has been slowly escalating. During my examination he reports a 6/10 dull aching pain located in the center of his abdomen around his umbilicus. He reports having some mild nausea earlier, but states that his main concern is the pain and the nausea is significantly diminished compared to yesterday when he arrived. The patient denies fevers, chills, sweats, chest pain, palpitations, claudication, cough, wheezing, shortness of breath, vomiting, dysuria, hematuria, urinary retention, paralysis , weakness, numbness and tingling. Additional Comments: See HPI for pertinent positives and negatives. All other systems reviewed and negative. (Pham Osman ., PA-C) Objective Vital Signs Date Time Temp Pulse Resp B/P Pulse Ox O2 Delivery O2 Flow Rate FiO2 07/12/16 12:00 Room Air 07/12/16 11:53 36.5 84 18 131/62 98 07/12/16 08:00 Room Air 07/12/16 07:49 36.8 80 18 129/63 98 07/12/16 04:00 Room Air 07/12/16 03:14 36.4 86 22 125/88 93 Room Air 07/12/16 00:00 Room Air 07/11/16 23:51 36.9 96 16 135/89 94 Room Air 07/11/16 20:27 95 Room Air 07/11/16 19:58 54 16 96 Room Air 07/11/16 18:56 36.4 98 20 164/103 07/11/16 18:19 89 16 148/80 97 Room Air 07/11/16 17:23 89 18 151/87 96 Room Air 07/11/16 15:36 94 18 164/84 95 Room Air 07/11/16 15:11 86 07/11/16 15:02 96 18 155/86 93 Room Air (Pham Osman ., PA-C) Physical Exam General Appearance: WD/WN, no apparent distress, + obese (morbidly obese) Eyes: normal inspection, PERRL, EOMI ENT: normal ENT inspection, hearing grossly normal, pharynx normal Neck: supple, no JVD, trachea midline Respiratory/Chest: lungs clear, normal breath sounds, no respiratory distress Cardiovascular: no gallop, no murmur, + irregularly irregular (rate controlled) Abdomen: normal bowel sounds, soft, + tenderness (diffuse tenderness, most marked in above the umbilicus) Extremities: non-tender, normal inspection, no pedal edema Neurologic/Psychiatric: alert, normal mood/affect, oriented x 3 Skin: normal color, warm/dry, no rash (Pham Osman ., PA-C) Laboratory Results Last 24 Hours Test 07/11/16 17:58 07/11/16 20:09 07/11/16 20:52 07/11/16 23:50 Troponin I < 0.015 ng/ml Prothrombin Time 11.8 SECONDS Prothromb Time International Ratio 1.1 Bedside Glucose 131 mg/dl 143 mg/dl Test 07/12/16 05:53 07/12/16 06:11 07/12/16 11:14 White Blood Count 11.88 K/uL Red Blood Count 4.91 M/uL Hemoglobin 14.7 g/dL Hematocrit 42.9 % Mean Corpuscular Volume 87.4 fL Mean Corpuscular Hemoglobin 29.9 pg Mean Corpuscular Hemoglobin Concent 34.3 g/dl Platelet Count 184 K/uL Mean Platelet Volume 10.0 fL Neutrophils (%) (Auto) 72.3 % Lymphocytes (%) (Auto) 19.4 % Monocytes (%) (Auto) 6.7 % Eosinophils (%) (Auto) 1.0 % Basophils (%) (Auto) 0.3 % Neutrophils # (Auto) 8.59 K/uL Lymphocytes # (Auto) 2.31 K/uL Monocytes # (Auto) 0.80 K/uL Eosinophils # (Auto) 0.12 K/uL Basophils # (Auto) 0.03 K/uL RDW Standard Deviation 46.4 fL RDW Coefficient of Variation 14.5 % Immature Granulocyte % (Auto) 0.3 % Immature Granulocyte # (Auto) 0.03 K/uL Sodium Level 139 mmol/L Potassium Level 3.6 mmol/L Chloride Level 104 mmol/L Carbon Dioxide Level 25 mmol/L Anion Gap 10.0 mmol/L Blood Urea Nitrogen 13 mg/dl Creatinine 0.98 mg/dl Est Creatinine Clear Calc Drug Dose 93.8 ml/min Estimated GFR () 94.1 Estimated GFR (Non- 81.2 BUN/Creatinine Ratio 13.3 Random Glucose 158 mg/dl Calcium Level 8.5 mg/dl Phosphorus Level 2.2 mg/dl Magnesium Level 2.1 mg/dl Triglycerides Level 83 mg/dl Cholesterol Level 113 mg/dl HDL Cholesterol 39 mg/dl LDL Cholesterol, Calculated 57 mg/dl VLDL Cholesterol, Calculated 17 mg/dl Cholesterol/HDL Ratio 2.9 Bedside Glucose 146 mg/dl 148 mg/dl (Pham Osman .GABBY) Diagnostic Results Reviewed EKG and agree with interpretation as follows: 75 bpm, atrial fibrillation (Pham Osman PA-C) Assessment and Plan 66 y/o male with a history of CAD and SC, CABG, PCI with Stent, DM II, and Sleep Apnea, that presents to the ED with a 1 day history of abdominal pain. Came in with constant 10/10 diffuse pain throughout the abdomen. H/o multiple episodes of similar pain over the last 15 years, the last of which occurred 2-3 years ago. He was also having vomiting that began as clear with some bile and then began vomiting up food from yesterday. He denies any blood in his vomit. Denies h/o reflux, gastritis, or peptic ulcer disease. Recently seen by [employer] for his a-fib, amiodarone and beta blockers had been stopped due to bradycardia. Abdominal pain--recurrent over the last 15 years, last episode 2-3 years ago. Pain had resolved this morning temporary, now coming back -CT Abd Pelvis: Small gallstone at neck of gallbladder -RUQ U/S: consistent with portal venous gas, minimal venous gas adjacent to stomach. Cholelithiasis. No evidence acute cholecystitis -CTA: no evidence of abdominal aortic aneurysm or dissection, celiac or superior mesenteric artery stenosis, renal artery stenosis. Positive for cholelithiasis. Minimal haziness of peripancreatic fat at pancreatic head. -General surgery consulted, appreciate recs: no need for surgical intervention at this time. Continue IV antibiotics. Defer to GI for further evaluation -GI consulted, appreciate recs -Pt kept NPO until GI sees -NSS at 150 cc/hr -Ciprofloxacin 400 mg IV q12h -Flagyl 500 mg IV q8h -Morphine 2 mg IV q4h prn pain -HIDA scan ordered Atrial Fibrillation--rate controlled. Amiodarone and beta atilio had been held due to bradycardia by Dr. Black -Admit to telemetry for cardiac monitoring -Xarelto held in case of possible EGD H/o SC -Repeat EK bpm, a-fib -Troponins negative -No acute events on telemetry overnight Diabetes mellitus type 2--Last HgbA1c checked 01/15/16 was 6.1 -Hold metformin -Insulin sliding scale -Check BSGs q ac and qhs -Recheck HgbA1c Hypertension -Continue amlodipine 5 mg PO qd HLD -Continue atorvastatin 40mg PO qd Mood disorder -Continue gabapentin 300 mg PO BID, Lamictal 400 mg PO qd, and Seroquel 100 mg PO qhs Restless Leg Syndrome -Continue Mirapex 1 mg PO qd DVT prophylaxis -Heparin 5000 units SC q12h -NANCY braden and SCDs Code Status -Level I, FULL RESUSCITATION STATUS (Pham Osman, GABBY) Reviewed: Pt Seen/Exam by Me (Violetta Jordan MD) 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 Discussed with NATE Osman and agree with findings and plan as documented in the note. Any exceptions or clarifications are listed here: pain controlled with morphine, 4th recurrence of same exact N/V and epigastric abd pain in 15 yrs. vitals reviewed nad aaox 3 morbidly obese irreg irreg normal rate, no mgr ctab unlabored breathing abd +BS, soft, obese, +TTP epigastric, some RUQ and mostly supraumbilical region without guarding or rebound no edema CHolelithiasis symptomatic, no obvious cholecystitis, no choledocholithiasis. Check HIDA, await GI input, continue IV abx, discussed elective lap markie if HIDA negative Documented By: Violetta Jordan (Violetta Jordan MD)
[2016-07-12 15:41] VITALS: BP 128/73; PULSE 84; TEMP 36.8; O2SAT 95
[2016-07-12 16:05] LABS: ESTIMATED AVERAGE GLUCOSE 143 mg/dl; HA1C FLAG Normal (Normal)
[2016-07-12 19:40] VITALS: BP 131/81; PULSE 90; TEMP 37.4; O2SAT 94
[2016-07-12] MEDS: QUETIAPINE FUMARATE 100 MG TAB PO SCH (21:18)
[2016-07-12 23:35] VITALS: BP 123/80; PULSE 80; TEMP 36.8; O2SAT 94
[2016-07-13] MEDS: CIPROFLOXACIN / D5W 400 MG in PREMIXED IN D5W 200 ML IV SCH ×2 (04:18→15:53)
[2016-07-13] MEDS: SODIUM CHLORIDE 0.9% 1000ML 1,000 ML IV SCH (04:20)
[2016-07-13 04:23] VITALS: BP 95/65; PULSE 87; TEMP 36.8; O2SAT 94
[2016-07-13] MEDS: INSULIN ASPART 100 UNITS/ML 3 ML PEN SC SCH ×5 (06:00→19:59)
[2016-07-13] MEDS: METRONIDAZOLE / NSS 500 MG in PREMIXED NSS 100 ML IV SCH ×2 (06:37→13:10)
[2016-07-13 07:30] VITALS: BP 116/75; PULSE 73; TEMP 36.4; O2SAT 97
[2016-07-13 07:53] LABS: BASO % 0.3 %; BASO ABS # 0.03 K/uL (0-0.2); COMPLETE YES; EOS % 2.4 %; HEMATOCRIT 43.9 % (42-52); IG% 0.5 %; LYMPH % 25.9 %; LYMPH ABS # 2.27 K/uL (1.2-3.4); MEAN CELL VOLUME 86.4 fL (80-100); MEAN CORPUSCULAR HEMOGLOBIN 28.9 pg (25-34); MEAN CORPUSCULAR HGB CONC 33.5 g/dl (32-36); MEAN PLATELET VOLUME 9.9 fL (7.4-10.4); MONO % 8.8 %; NEUT % 62.1 %; PLATELET COUNT 186 K/uL (130-400); RED BLOOD COUNT 5.08 M/uL (4.7-6.1); WHITE BLOOD COUNT 8.78 K/uL (4.8-10.8)
--- NOTE | 2016-07-13 08:12 | GASTROINTESTINAL CONSULTATION ---
DATE OF CONSULTATION: 07/12/2016 DATE: 07/12/2016. CHIEF COMPLAINT: Epigastric abdominal pain. DICTATION ENDED HERE!consult redictated phil PELAYO
[2016-07-13] MEDS ORDERED: SODIUM CHLORIDE 0.9% IV SCH (08:15)
[2016-07-13] MEDS ORDERED: SINCALIDE IV SCH (08:15)
[2016-07-13 08:29] LABS: BUN/CREATININE RATIO 11.1 (10-20); CALCIUM 8.5 mg/dl (8.5-10.1); CREATININE 1.2 mg/dl (0.60-1.40); POTASSIUM 3.7 mmol/L (3.5-5.1)
[2016-07-13] MEDS: PANTOprazole INJ 40 MG in SYRINGE 0 ML IV SCH ×2 (10:41→19:59)
[2016-07-13] MEDS: AMLODIPINE BESYLATE 5 MG TAB PO SCH (10:42)
[2016-07-13] MEDS: ATORVASTATIN 40 MG TAB PO SCH (10:42)
[2016-07-13] MEDS: ASPIRIN 81 MG ECTAB PO SCH (10:42)
[2016-07-13] MEDS: GABAPENTIN 300 MG CAP PO SCH ×2 (10:42→19:59)
[2016-07-13] MEDS: HEPARIN SOD 5000 UNIT/0.5 ML CARP SQ SCH (10:43)
--- NOTE | 2016-07-13 11:29 | DIAGNOSTIC IMAGING REPORT ---
NUCLEAR MEDICINE HEPATOBILIARY SCAN WITH EJECTION FRACTION HISTORY: Pain. Nausea. abdominal pain, gall stones COMPARISON: None. TECHNIQUE: Immediately following the intravenous administration of 5 mCi Tc-99m Choletec, dynamic anterior abdominal imaging pre/post 1.056 mcg of Kinevac was performed. FINDINGS: Uniform hepatic tracer accumulation is shown. Prompt intrahepatic biliary excretion is seen. The gallbladder, common bile duct, and small bowel are all visualized by 30 minutes. This appearance represents the normal sequence of biliary excretion. The gallbladder ejection fraction following administration of Kinevac was 31 % (normal >35%). IMPRESSION: 1. No evidence for cystic duct obstruction. 2. Gallbladder ejection fraction calculated to be somewhat low at 31% %. Electronically signed by: Ministerio Gonzalez M.D. 07/13/2016 11:28 AM Dictated Date/Time: 07/13/2016 11:25 AM
[2016-07-13 11:59] VITALS: BP 135/84; PULSE 87; TEMP 36.5; O2SAT 97
--- NOTE | 2016-07-13 12:14 | Surgery Progress Note ---
Surgery Progress Note Date of Service Jul 13, 2016. Subjective Post OP Day: HD 3 + feeling well, + flatus, No complaints, No nausea, No vomiting Objective Vital Signs: Date Time Temp Pulse Resp B/P Pulse Ox O2 Delivery O2 Flow Rate FiO2 07/13/16 12:00 Room Air 07/13/16 11:59 36.5 87 20 135/84 97 Room Air 07/13/16 08:00 Room Air 07/13/16 07:30 36.4 73 20 116/75 97 Room Air 07/13/16 04:23 36.8 87 18 95/65 94 Room Air 07/13/16 04:00 Room Air 07/13/16 00:00 Room Air 07/12/16 23:35 36.8 80 18 123/80 94 Room Air 07/12/16 20:00 Room Air 07/12/16 19:40 37.4 90 18 131/81 94 Room Air 07/12/16 16:00 Room Air 07/12/16 15:41 36.8 84 20 128/73 95 General Appearance: WD/WN, no apparent distress Head: normocephalic, atraumatic Neck: supple, trachea midline Respiratory/Chest: lungs clear Cardiovascular: regular rate, rhythm Abdomen: normal bowel sounds, non tender, non distended, soft Extremities: non-tender, no pedal edema Laboratory Results: Results Past 24 Hours Test 07/12/16 16:11 07/12/16 20:44 07/13/16 00:10 07/13/16 06:58 Range/Units Bedside Glucose 120 108 107 128 70-99 mg/dl Test 07/13/16 07:16 07/13/16 11:17 Range/Units White Blood Count 8.78 4.8-10.8 K/uL Red Blood Count 5.08 4.7-6.1 M/uL Hemoglobin 14.7 14.0-18.0 g/dL Hematocrit 43.9 42-52 % Mean Corpuscular Volume 86.4 80-100 fL Mean Corpuscular Hemoglobin 28.9 25-34 pg Mean Corpuscular Hemoglobin Concent 33.5 32-36 g/dl Platelet Count 186 130-400 K/uL Mean Platelet Volume 9.9 7.4-10.4 fL Neutrophils (%) (Auto) 62.1 % Lymphocytes (%) (Auto) 25.9 % Monocytes (%) (Auto) 8.8 % Eosinophils (%) (Auto) 2.4 % Basophils (%) (Auto) 0.3 % Neutrophils # (Auto) 5.46 1.4-6.5 K/uL Lymphocytes # (Auto) 2.27 1.2-3.4 K/uL Monocytes # (Auto) 0.77 0.11-0.59 K/uL Eosinophils # (Auto) 0.21 0-0.5 K/uL Basophils # (Auto) 0.03 0-0.2 K/uL RDW Standard Deviation 44.7 36.4-46.3 fL RDW Coefficient of Variation 14.2 11.5-14.5 % Immature Granulocyte % (Auto) 0.5 % Immature Granulocyte # (Auto) 0.04 0.00-0.02 K/uL Sodium Level 139 136-145 mmol/L Potassium Level 3.7 3.5-5.1 mmol/L Chloride Level 104 98-107 mmol/L Carbon Dioxide Level 27 21-32 mmol/L Anion Gap 8.0 3-11 mmol/L Blood Urea Nitrogen 13 7-18 mg/dl Creatinine 1.20 0.60-1.40 mg/dl Est Creatinine Clear Calc Drug Dose 76.6 ml/min Estimated GFR () 73.6 Estimated GFR (Non- 63.5 BUN/Creatinine Ratio 11.1 10-20 Random Glucose 130 70-99 mg/dl Calcium Level 8.5 8.5-10.1 mg/dl Bedside Glucose 130 70-99 mg/dl Assessment & Plan Abdominal pain with trace portal gas is resolved; gastritis/pancreatitis -agree with EGD -IV abx -again completely asymptomatic this AM -can have regular diet once scope complete per GI -asymptomatic gallstones; HIDA scan negative -planning RYGBP in future would recommend lap markie at the same time
--- NOTE | 2016-07-13 13:22 | Hospitalist Progress Note ---
Hospitalist Progress Note Date of Service Jul 13, 2016. (Pham Joseph ., SOLISC) Subjective Pt evaluation today including: conversation w/ patient, physical exam, chart review, lab review, review of studies, conversation w/ risk and insurance consultant (spoke with Dr. Dunne), review of inpatient medication list Pain: None PO Intake: NPO Voiding: no voiding problems Patient reports feeling well. He currently denies any abdominal pain, nausea, or vomiting. He states that he feels back to his normal state of health. The patient is being kept nothing by mouth and is scheduled for an EGD this afternoon with Dr. Martin. HIDA scan this morning was negative for obstruction. The patient denies fevers, chills, sweats, chest pain, palpitations, claudication, cough, wheezing, shortness of breath, nausea, vomiting, abdominal pain, dysuria, hematuria, urinary retention, paralysis, weakness, numbness and tingling. Additional Comments: See HPI for pertinent positives and negatives. All other systems reviewed and negative. (Pham Joseph ., SOLISC) Objective Vital Signs Date Time Temp Pulse Resp B/P Pulse Ox O2 Delivery O2 Flow Rate FiO2 07/13/16 12:00 Room Air 07/13/16 11:59 36.5 87 20 135/84 97 Room Air 07/13/16 08:00 Room Air 07/13/16 07:30 36.4 73 20 116/75 97 Room Air 07/13/16 04:23 36.8 87 18 95/65 94 Room Air 07/13/16 04:00 Room Air 07/13/16 00:00 Room Air 07/12/16 23:35 36.8 80 18 123/80 94 Room Air 07/12/16 20:00 Room Air 07/12/16 19:40 37.4 90 18 131/81 94 Room Air 07/12/16 16:00 Room Air 07/12/16 15:41 36.8 84 20 128/73 95 (Pham Joseph PA-C) Physical Exam General Appearance: WD/WN, no apparent distress, + obese (morbidly obese) Eyes: normal inspection, PERRL, EOMI ENT: normal ENT inspection, hearing grossly normal, pharynx normal Neck: supple, no JVD, trachea midline Respiratory/Chest: lungs clear, normal breath sounds, no respiratory distress Cardiovascular: no gallop, + systolic murmur, + irregularly irregular (rate controlled) Abdomen: normal bowel sounds, non tender, soft Extremities: non-tender, normal inspection, no pedal edema Neurologic/Psychiatric: alert, normal mood/affect, oriented x 3 Skin: normal color, warm/dry, no rash (Pham Joseph ., PA-C) Laboratory Results Last 24 Hours Test 07/12/16 16:11 07/12/16 20:44 07/13/16 00:10 07/13/16 06:58 Bedside Glucose 120 mg/dl 108 mg/dl 107 mg/dl 128 mg/dl Test 07/13/16 07:16 07/13/16 11:17 White Blood Count 8.78 K/uL Red Blood Count 5.08 M/uL Hemoglobin 14.7 g/dL Hematocrit 43.9 % Mean Corpuscular Volume 86.4 fL Mean Corpuscular Hemoglobin 28.9 pg Mean Corpuscular Hemoglobin Concent 33.5 g/dl Platelet Count 186 K/uL Mean Platelet Volume 9.9 fL Neutrophils (%) (Auto) 62.1 % Lymphocytes (%) (Auto) 25.9 % Monocytes (%) (Auto) 8.8 % Eosinophils (%) (Auto) 2.4 % Basophils (%) (Auto) 0.3 % Neutrophils # (Auto) 5.46 K/uL Lymphocytes # (Auto) 2.27 K/uL Monocytes # (Auto) 0.77 K/uL Eosinophils # (Auto) 0.21 K/uL Basophils # (Auto) 0.03 K/uL RDW Standard Deviation 44.7 fL RDW Coefficient of Variation 14.2 % Immature Granulocyte % (Auto) 0.5 % Immature Granulocyte # (Auto) 0.04 K/uL Sodium Level 139 mmol/L Potassium Level 3.7 mmol/L Chloride Level 104 mmol/L Carbon Dioxide Level 27 mmol/L Anion Gap 8.0 mmol/L Blood Urea Nitrogen 13 mg/dl Creatinine 1.20 mg/dl Est Creatinine Clear Calc Drug Dose 76.6 ml/min Estimated GFR () 73.6 Estimated GFR (Non- 63.5 BUN/Creatinine Ratio 11.1 Random Glucose 130 mg/dl Calcium Level 8.5 mg/dl Bedside Glucose 130 mg/dl (Pham Joseph ., PA-C) Diagnostic Results Reviewed the following studies and agree with interpretation as follows: Patient Name: YULIA RASMUSSEN Unit Number: [id number] Dictated: 07/13/[id number] Transcribed: 07/13/16 1125 MS Printed Date/Time: [~ rep prt dt]/[~ rep prt tm] [~ rep ct labl] - [~ rep ct ivnm] [facility] [place] [place] [address] Dictated: 07/13/[id number] Transcribed: 07/13/16 1125 MS Printed Date/Time: [~ rep prt dt]/[~ rep prt tm] [~ rep ct labl] - [~ rep ct ivnm] Patient: YULIA RASMUSSEN Address1: [address] [facility] Rec: [id number] Address2: Acct ID: [id number] [facility] Zip: [place] [address] Date: 1950 Sex: M Room/Bed: [facility] Ref Phy: Garret Rodrigez D.O. SC: C.2T Att Phy: Violetta Jordan MD Report #: [id number] [place] Phy: Garret Rodrigez D.O. Test: HEF Admit Phy: Demarco Walls MD Pick Up: GUEVARA Interpreting Phy: Ministerio Gonzalez M.D. Diagnosis: ABDOMINAL PAIN Ordering Phy: Pham Joseph PA-C Service Date: 07/13/16 Admit Date: 07/11/1701/28/17 MNE: [id number] CONF: DICTATED BY: Ministerio Gonzalez M.D.]] CC: Garret Rodrigez D.O. Cordero, Amanda ., Violetta Felix MD Endcc: [~ rep ct add3]] NUCLEAR MEDICINE HEPATOBILIARY SCAN WITH EJECTION FRACTION HISTORY: Pain. Nausea. abdominal pain, gall stones COMPARISON: None. TECHNIQUE: Immediately following the intravenous administration of 5 mCi Tc-99m Choletec, dynamic anterior abdominal imaging pre/post 1.056 mcg of Kinevac was performed. FINDINGS: Uniform hepatic tracer accumulation is shown. Prompt intrahepatic biliary excretion is seen. The gallbladder, common bile duct, and small bowel are all visualized by 30 minutes. This appearance represents the normal sequence of biliary excretion. The gallbladder ejection fraction following administration of Kinevac was 31 % (normal >35%). IMPRESSION: 1. No evidence for cystic duct obstruction. 2. Gallbladder ejection fraction calculated to be somewhat low at 31% %. Electronically signed by: Ministerio Gonzalez M.D. 07/13/2016 11:28 AM Dictated Date/Time: 07/13/2016 11:25 AM The status of this report is Signed. Draft = Not yet reviewed or approved by Radiologist. Signed = Reviewed and approved by Radiologist. <AttendingPhy>Violetta Jordan MD</AttendingPhy> <FamilyPhy>Garret Rodrigez D.O.</FamilyPhy> <PrimaryPhy>Garret Rodrigez D.O.</PrimaryPhy> < UnitNumber>[id number]</UnitNumber> <VisitNumber>[id number]</VisitNumber> < PatientName>YULIA RASMUSSEN</PatientName> <DateOfBirth>1950</DateOfBirth> < Location>C[facility]</Location> <ServiceDate>07/11/16</ServiceDate> <MNE>ESINDI</MNE> < OrderingPhy>Pham Joseph PA-C</OrderingPhy> <OrderingPhyMNE>f rep ord dr hicks< /OrderingPhyMNE> <DictatingPhyMNE>f rep dict dr hicks</DictatingPhyMNE> <CCListMNE >f rep ct mne</CCListMNE> <AdmittingPhyMNE>f pt admit dr hicks</AdmittingPhyMNE> < AttendingPhyMNE>f pt attend dr hicks</AttendingPhyMNE> <ConsultingPhyMNE>f pt consult dr hicks</ConsultingPhyMNE> <FamilyPhyMNE>f pt fam dr hicks</FamilyPhyMNE> <OtherPhyMNE>f pt other dr hicks</OtherPhyMNE> < PrimaryPhyMNE>f pt prim care dr hicks</PrimaryPhyMNE> <ReferringPhyMNE>f pt referring dr hicks</ReferringPhyMNE> (Pham Joseph ., GABBY) Assessment and Plan 66 y/o male with a history of CAD and ME, CABG, PCI with Stent, DM II, and Sleep Apnea, that presents to the ED with a 1 day history of abdominal pain. Came in with constant 10/10 diffuse pain throughout the abdomen. H/o multiple episodes of similar pain over the last 15 years, the last of which occurred 2-3 years ago. He was also having vomiting that began as clear with some bile and then began vomiting up food from yesterday. He denies any blood in his vomit. Denies h/o reflux, gastritis, or peptic ulcer disease. Recently seen by kiln tender for his a-fib, amiodarone and beta blockers had been stopped due to bradycardia. Abdominal pain--recurrent over the last 15 years, last episode 2-3 years ago. -CT Abd Pelvis: Small gallstone at neck of gallbladder -RUQ U/S: consistent with portal venous gas, minimal venous gas adjacent to stomach. Cholelithiasis. No evidence acute cholecystitis -CTA: no evidence of abdominal aortic aneurysm or dissection, celiac or superior mesenteric artery stenosis, renal artery stenosis. Positive for cholelithiasis. Minimal haziness of peripancreatic fat at pancreatic head. -General surgery consulted, appreciate recs: no need for surgical intervention at this time. Continue IV antibiotics. Recommend cholecystectomy at some point. -GI consulted, appreciate recs: pt scheduled for EGD today -Pt kept NPO for EGD -NSS at 150 cc/hr -Ciprofloxacin 400 mg IV q12h -Flagyl 500 mg IV q8h -Morphine 2 mg IV q4h prn pain -HIDA scan negative for cystic duct obstruction. Gallbladder ejection fraction minimally low at 31%. Atrial Fibrillation--rate controlled. Amiodarone and beta atilio had been held due to bradycardia by Dr. Black -Admit to telemetry for cardiac monitoring. Few episodes of RVR overnight but mostly rate in 80s to 90s -Xarelto held for EGD H/o ME -Repeat EK bpm, a-fib -Troponins negative Diabetes mellitus type 2--Last HgbA1c checked 01/15/16 was 6.1 -Hold metformin -Insulin sliding scale -Check BSGs q ac and qhs -Rechecked HgbA1c was 6.6 Hypertension -Continue amlodipine 5 mg PO qd HLD -Continue atorvastatin 40mg PO qd Mood disorder -Continue gabapentin 300 mg PO BID, Lamictal 400 mg PO qd, and Seroquel 100 mg PO qhs Restless Leg Syndrome -Continue Mirapex 1 mg PO qd DVT prophylaxis -Hold chemical prophylaxis due to EGD -NANCY braden and SCDs Code Status -Level I, FULL RESUSCITATION STATUS (Pham Joseph ., PA-C)
[2016-07-13] MEDS ORDERED: NURSING VERBAL MED ORDER ONE (16:00)
[2016-07-13 16:16] VITALS: BP 130/90; PULSE 83; TEMP 36.5; O2SAT 97
[2016-07-13 19:16] VITALS: BP 105/64; PULSE 77; TEMP 36.9; O2SAT 95
[2016-07-13] MEDS ORDERED: PRAMIPEXOLE DIHYDROCHLORIDE 0.5 MG TAB PO SCH (21:00)
[2016-07-13] MEDS ORDERED: CPR500 PO (21:06)
[2016-07-13] MEDS ORDERED: METR500T PO (21:06)
--- NOTE | 2016-07-13 21:17 | Discharge Instructions ---
Discharge Instructions Admission Reason for Admission: Abdominal Pain Discharge Discharge Diagnosis / Problem: Abdominal pain, cholelithiasis Discharge Goals Goal(s): Improve disease control, Diagnostic testing, Therapeutic intervention Activity Recommendations Activity Limitations: resume your previous activity . Instructions / Follow-Up Instructions / Follow-Up You were admitted with abdominal pain. You were found to have gallstones although it was not clear that your pain was coming from the gallstones. The General Surgeon that saw you did not feel your pain was coming from the gallstones and did not feel that you needed to have any sort of urgent surgery. He did recommend that you have your gallbladder removed simultaneously with your gastric bypass planned for the near future to prevent any future gallstone attacks. Your HIDA scan did not show evidence of any infection or inflammation of the gallbladder. Because your pain was completely resolved and you were tolerating a regular low fat diet, it was decided that you were stable to be discharged to home with close follow up with the [employer] Records Clerk in the office. You may have a Meckel's diverticulum or could be having intermittent intussusception ( telescoping of the bowel) causing your pain. An EGD (upper scope) was recommended but can be done as an outpatient to rule out inflammation of the stomach or an ulcer but this was felt to be less likely. Please follow up with Gastroenterology Dr. Willis Martin at [facility] within 1 week. He can arrange both of these tests for you. You should finish out a course of the antibiotics started here called Cipro and Flagyl. Please also follow up with Dr. Rodrigez within 1 week. Current Hospital Diet Patient's current hospital diet: AHA Diet (Heart Healthy) Discharge Diet Recommended Diet: AHA Diet (Heart Healthy) (and low fat) Procedures Procedures Performed: HIDA scan Abdominal ultrasound CT abdomen/pelvis Chest xray CT angiogram abdomen Pending Studies Studies pending at discharge: no Laboratory Results Hemoglobin A1c Test 07/12/16 05:53 Range/Units Estimated Average Glucose 143 mg/dl Hemoglobin A1c 6.6 H 4.5-5.6 % Lipid Panel Test 07/12/16 05:53 Range/Units Triglycerides Level 83 0-150 mg/dl Cholesterol Level 113 0-200 mg/dl HDL Cholesterol 39 mg/dl Cholesterol/HDL Ratio 2.9 LDL Cholesterol, Calculated 57 mg/dl Medical Emergencies . Who to Call and When: Medical Emergencies: If at any time you feel your situation is an emergency, please call 911 immediately. . Non-Emergent Contact Non-Emergency issues call your: Primary Care Provider, [employer] Records Clerk Call Non-Emergent contact if: you have a fever, your pain is not controlled, your pain is worsening, your pain is unusual for you, your pain is concerning you, you have any medication questions if you have worsening abdominal pain, bloody or black tarry stools, nausea or vomiting, or for any other acute concerns. . . "Provider Documentation" section prepared by Violetta Jordan. VTE Core Measure Inpt VTE Proph given/why not?: Unfractionated heparin SQ
[2016-07-13 21:22] VITALS: BP 105/64; PULSE 77; TEMP 36.9; O2SAT 95
--- NOTE | 2016-07-13 21:44 | Discharge Summary ---
Discharge Summary Date of Service Jul 13, 2016. Discharge Summary Admission Date: Jul 11, 2016 at 17:20 Discharge Date: Jul 13, 2016 Discharge Disposition: Home Principal Diagnosis: Abdominal pain Problems/Secondary Diagnoses: CAD s/p CABG and PCI with Stent DM II Sleep Apnea Cholelithiasis Atrial Fibrillation Diabetes mellitus type 2 Hypertension Dyslipidemia Mood disorder Restless Leg Syndrome Morbid obesity Immunizations: Have You Had Influenza Vaccine: No Influenza Vaccine Date: Feb 06, 2011 History of Tetanus Vaccine?: No History of Pneumococcal: No Pneumococcal Date: Feb 06, 2011 History of Hepatitis B Vaccine: No Procedures: CHEST ONE VIEW PORTABLE CLINICAL HISTORY: confusion dyspnea COMPARISON STUDY: 01/15/2016 FINDINGS: Moderate cardiomegaly status post median sternotomy. This is stable from the prior exam. Slight plantar left lateral costophrenic angle also chronic. Lungs are clear. IMPRESSION: Chronic change. No acute process. ABDOMEN AND PELVIS CT WITH IV CONTRAST CT DOSE: 1108.51 mGycm HISTORY: Pain abd pain TECHNIQUE: Multiaxial CT images of the abdomen and pelvis were performed following the use of intravenous contrast. COMPARISON STUDY: 12/27/2014 FINDINGS: Lung bases are clear. Liver spleen and pancreas are unremarkable. Possible small gallstone the region of the gallbladder neck. Kidneys enhance uniformly. There are negative for hydronephrosis. Bowel pattern is nonobstructive. The appendix is normal. Bladder is midline. IMPRESSION: Small gallstone in the region of the gallbladder neck. Right upper quadrant ultrasonography is suggested. Study otherwise is negative ABDOMINAL ULTRASOUND, RIGHT UPPER QUADRANT HISTORY: Gallstone. COMPARISON: Right upper quadrant ultrasound December 28, [address] of the abdomen and pelvis July 11, 2016. FINDINGS: Heterogeneity of the liver is noted. Echogenic foci within the liver suggest trace portal venous gas. There is no biliary ductal dilatation. This study is compromised by suboptimal penetration. The liver is heterogeneous. There may be fatty infiltration of the liver. There is no right hydronephrosis. There is a suspected gallstone within the gallbladder. There is no gallbladder wall thickening. There may be minimal sludge within the gallbladder. IMPRESSION: 1. Branching echogenic foci within the liver consistent with portal venous gas. In retrospect, trace portal venous gas was shown on CT from earlier today with minimal venous gas adjacent to the stomach which may reflect the source. Close clinical monitoring is recommended. Discussed with Robbi Boucher at time of dictation. 2. Cholelithiasis. No evidence of acute cholecystitis. CT ANGIO ABD/PELVIS WITH CONTRAST CT DOSE: 1982.12 mGy.cm CLINICAL HISTORY: Severe abdominal pain. Possible aortic dissection. TECHNIQUE: The patient was scanned in a dynamic helical fashion during intravenous administration of 120 cc Optiray 320. MIP imaging was performed. COMPARISON STUDY: 07/11/2016 FINDINGS: Imaging through the lung bases reveal mild dependent atelectatic change. The heart is mildly enlarged. No hepatic masses are visualized. There is cholelithiasis. No splenic masses are visualized. No pancreatic masses are visualized. There is slight haziness of the peripancreatic fat adjacent the pancreatic head. Minimal pancreatitis cannot be excluded. No adrenal masses are visualized. No renal masses are visualized on this arterial phase study. There are no transition zones indicate bowel obstruction. The appendix appears normal. There is no acute diverticulitis. There is no ascites. There is no free air. There is no abdominal aortic dilatation. There are no intimal flaps to indicate dissection. There is no evidence of superior mesenteric or celiac artery stenosis. There is no evidence of renal artery stenosis. Inferior mesenteric artery is patent. There is no iliac artery stenosis. There are no abnormal pelvic masses. IMPRESSION: 1. No evidence of abdominal aortic aneurysm or dissection 2. No evidence of celiac or superior mesenteric artery stenosis 3. No evidence of renal artery stenosis 4. Cholelithiasis 5. Minimal haziness of the peripancreatic fat at the level the pancreatic head NUCLEAR MEDICINE HEPATOBILIARY SCAN WITH EJECTION FRACTION HISTORY: Pain. Nausea. abdominal pain, gall stones COMPARISON: None. TECHNIQUE: Immediately following the intravenous administration of 5 mCi Tc-99m Choletec, dynamic anterior abdominal imaging pre/post 1.056 mcg of Kinevac was performed. FINDINGS: Uniform hepatic tracer accumulation is shown. Prompt intrahepatic biliary excretion is seen. The gallbladder, common bile duct, and small bowel are all visualized by 30 minutes. This appearance represents the normal sequence of biliary excretion. The gallbladder ejection fraction following administration of Kinevac was 31 % (normal >35%). IMPRESSION: 1. No evidence for cystic duct obstruction. 2. Gallbladder ejection fraction calculated to be somewhat low at 31% %. Consultations: General Surgery Gastroenterology Medication Reconciliation New Medications: Ciprofloxacin (Ciprofloxacin HCl) 500 Mg Tab 500 MG PO BID for 5 Days, #10 TAB Metronidazole (Flagyl) 500 Mg Tab 500 MG PO TID for 5 Days, #15 TAB Continued Medications: Amlodipine Besylate (Norvasc) 5 Mg Tab 1 TAB PO DAILY for 30 Days, #30 TAB 0 Refills Aspirin (Aspirin Ec) 81 Mg Tab 81 MG PO DAILY Atorvastatin Calcium (Lipitor) 80 Mg Tab 40 MG PO DAILY, TAB Gabapentin (Gabapentin) 300 Mg Cap 300 MG PO BID, #270 Lamotrigine (Lamictal) 200 Mg Tab 400 MG PO DAILY, TAB Metformin HCl (Metformin HCl) 500 Mg Tab 500 MG PO BID, #60 Pramipexole Dihydrochloride (Pramipexole Dihydrochlori) 1 Mg Tab 1 MG PO DAILY, #180 Quetiapine Fumarate (Quetiapine Fumarate) 100 Mg Tab 100 MG PO HS, #135 Rivaroxaban (Xarelto) 20 Mg Tab 20 MG PO DAILY, TAB Spironolactone (Spironolactone) 25 Mg Tab 25 MG PO DAILY, #90 Referrals At Discharge Follow up Referrals: Family Practice Referral - Within 1 Week with Garret Rodrigez D.O. Scale Adjuster Referral - Within 1 Week with Willis Martin M.D. Discharge Exam Pt was completely pain free for over 24 hrs at the time of discharge. He ate a double portion of food for dinner and had no pain, no nausea or vomiting, no bloody stools. He was quite anxious to go home. He declined to have an EGD which was discussed with GI by myself and the patient and decided would be ok to discharge and perform as an outpatient if still deemed necessary. HIDA scan was negative for cholecystitis and had some mildly low EF at 31%. Denied chest pain or SOB, was feeling very well. Review of Systems: Constitutional: No fatigue, No fever Eyes: No problem reported ENT: No problem reported Respiratory: No shortness of breath Cardiovascular: No chest pain, No edema, No palpitations Abdomen: No GI bleeding, No constipation, No diarrhea, No nausea, No pain, No vomiting Musculoskeletal: No muscle pain, No swelling Genitourinary - Male: No problem reported Neurologic: No problem reported Psychiatric: + anxiety Endocrine: No fatigue Hematologic / Lymphatic: No problem reported Integumentary: No problem reported Physical Exam: General Appearance: WD/WN, no apparent distress, + obese Eyes: normal inspection, EOMI, sclerae normal ENT: hearing grossly normal Neck: trachea midline Respiratory/Chest: lungs clear, normal breath sounds, no respiratory distress, no accessory muscle use Cardiovascular: no edema, no gallop, no JVD, no murmur, normal peripheral pulses, + irregularly irregular (with normal rate) Abdomen / GI: normal bowel sounds, non tender, soft (and morbidly obese), no pulsatile mass Extremities: no calf tenderness, no pedal edema Neurologic/Psychiatric: alert, normal mood/affect (but slightly anxious), oriented x 3 Skin: normal color, warm/dry, no rash Hospital Course 66 y/o male with a history of CAD and NV, CABG, PCI with Stent, DM II, and Sleep Apnea, that presents to the ED with a 1 day history of abdominal pain. Came in with constant 10/10 diffuse pain throughout the abdomen but focused in supraumbilical region. H/o multiple episodes of similar pain over the last 15 years, the last of which occurred 2-3 years ago. He has had multiple workups for this pain to include EGDs, HIDA scan, CT abd/pel, and RUQ USs. He was also having vomiting that began as clear with some bile and then began vomiting up food from yesterday. He denies any blood in his vomit. Denies h/o reflux, gastritis, or peptic ulcer disease. Recently seen by [employer] dean for his a-fib, amiodarone and beta blockers had been stopped due to bradycardia. Abdominal pain--recurrent over the last 15 years, last episode 2-3 years ago. Pain resolved completely and no more N/V, tolerating regular diet. -CT Abd Pelvis: Small gallstone possibly at neck of gallbladder -RUQ U/S: consistent with portal venous gas, minimal venous gas adjacent to stomach. Cholelithiasis. No evidence acute cholecystitis -CTA: no evidence of abdominal aortic aneurysm or dissection, celiac or superior mesenteric artery stenosis, renal artery stenosis. Positive for cholelithiasis. Minimal haziness of peripancreatic fat at pancreatic head but lipase on labs was normal. HIDA scan: 1. No evidence for cystic duct obstruction. 2. Gallbladder ejection fraction calculated to be somewhat low at 31% -General surgery consulted, appreciate recs: no need for surgical intervention at this time. Continue IV antibiotics. Defer to GI for further evaluation. Recommends elective lap cholecystectomy in conjunction with gastric bypass pt is planning in near future. -GI consulted, appreciate recs--> recommended EGD to r/o PUD however pt has had EGD twice before when had this same exact pain and both were normal. Therefore, pt declined EGD and GI offered to perform as outpatient if pt desires in the future. We entertained the idea of a Meckel's diverticulum and/or intussusception causing his pain. He will need a Meckel's scan but since he had a HIDA today he could not undergo the Meckel's scan. This can be done as an outpatient with GI MD. F/u with GI within 1 week Finish out course of po CIpro and Flagyl as leukocytosis did improve with this although WBC count could have resolved on own and was likely stress response. Atrial Fibrillation--rate controlled. Amiodarone and beta atilio had been recently discontinued due to bradycardia by Dr. Black -Admit to telemetry for cardiac monitoring-no significant events on tele, ECGs ok -Xarelto held in case of possible EGD and restarted on discharge H/o NV -Repeat EK bpm, a-fib -Troponins negative -No acute events on telemetry overnight Diabetes mellitus type 2- HgbA1c 6.6% -Held metformin here but can restart upon dc -Insulin sliding scale -Check BSGs q ac and qhs Hypertension -Continue amlodipine 5 mg PO qd HLD -Continue atorvastatin 40mg PO qd Mood disorder -Continue gabapentin 300 mg PO BID, Lamictal 400 mg PO qd, and Seroquel 100 mg PO qhs Restless Leg Syndrome -Continue Mirapex 1 mg PO qd DVT prophylaxis -Heparin 5000 units SC q12h -NANCY Garcias Code Status -Level I, FULL RESUSCITATION STATUS Total Time Spent: Greater than 30 minutes This includes examination of the patient, discharge planning, medication reconciliation, and communication with other providers. Discharge Instructions Please refer to the electronic Patient Visit Report (Discharge Instructions) for additional information. Follow-Up GI within 1 week PCP within 1 week Additional Copies To Garret Rodrigez D.O.; Willis Martin M.D.
--- NOTE | 2016-07-14 20:24 | GASTROINTESTINAL CONSULTATION ---
DATE OF CONSULTATION: 07/13/2016 I visited and examined the patient, afternoon. The patient had apparently refused EGD earlier this afternoon because of concerns that this was unlikely to yield any findings. The patient's abdominal pain is less bothersome to him and laboratory studies were reviewed as was his medication and allergy list, which are unchanged. The patient is afebrile. Vital signs are stable. REVIEW OF SYSTEMS: Otherwise noncontributory. Hemoglobin is 14.7. BUN and creatinine are 13 and 1.2, potassium is 3.7. PHYSICAL EXAMINATION: VITAL SIGNS: Today include temperature afebrile 36.5, blood pressure 130/90, respirations 18, heart rate 83, 97% on room air. I spoke with the patient at length regarding these issues. Surgery had seen the patient and although it is possible that cholecystectomy may ultimately relieve these recurrent symptoms, they favor its consideration at the time of potential gastric bypass. The patient is relocating to [place] in the next month and therefore it is felt that referral to a center that performs gastric bypass is most reasonable at which time his gallbladder could be removed. The HIDA scan showed an ejection fraction of 31%, which is mildly diminished. I spoke with the patient at length regarding these findings. Again we tentatively discussed the possibility of doing an upper endoscopy and the patient was willing to reconsider this and I had tentatively placed this on the schedule for Sunday. However, in further discussion the patient's abdominal pain, can sometimes be periumbilical and on the right side as well as epigastric. Consideration for a Meckel's diverticulum was made given the lack of findings on repeated imaging and endoscopic studies in the past. I believe that if this can be performed on Sunday morning then this would eliminate the need for upper endoscopy, if found to be positive. I did discuss these options with the patient. However, in the late evening, I was contacted by Dr. Jordan and apparently the Meckel's scan cannot be performed for several days following a HIDA scan and with this information the patient desired discharge from the hospital with followup as an outpatient. I would be happy to see the patient in GI clinic to arrange for the Meckel's study. Again, if this is unrevealing, then consideration for endoscopy could be made, although ultimately cholecystectomy along with his gastric bypass is reasonable. All questions answered. MTDD
--- NOTE | 2016-07-14 20:24 | GASTROINTESTINAL CONSULTATION ---
DATE OF CONSULTATION: 07/12/2016 DATE OF CONSULTATION: 07/12/2016. REQUESTING PHYSICIAN: Dr. Jordan. CHIEF COMPLAINT: Epigastric abdominal pain. HISTORY OF PRESENT ILLNESS: Mr. Wong is a 66-year-old white male with a past medical history for significant coronary artery disease, diabetes, prior CABG with coronary artery stent placement, sleep apnea. The patient had a 1 day history of abdominal epigastric pain that produced nausea along with cramping. This progressively occurred. The patient eventually developed nausea and vomiting. This group of symptoms was similar to events he has had on at least 3 occasions over the past few years. In the past, she has undergone upper endoscopy and other diagnostic testing without any abnormal findings. There was no reported fever, chills, hematemesis, coffee-ground emesis, melena, bright red blood per rectum, diarrhea or constipation. The patient does not use NSAIDs regularly and has no prior history of peptic ulcer disease. The patient does have a history of atrial fibrillation and had his medications adjusted. He does use Xarelto and aspirin. PAST MEDICAL HISTORY: Includes arthritis, atrial fibrillation, CABG, hypertension, morbid obesity, PTCA with stent placement, hypercholesterolemia. FAMILY HISTORY: Significant for mother who of cancer. There is no other related gastrointestinal family history by the patient's recollection. SOCIAL HISTORY: The patient is a former smoker but quit. Denies alcohol use. He is single. ALLERGIES: INCLUDE PENICILLIN, SULFA DRUGS, CLINT INHIBITORS, NITROGLYCERIN. HOME MEDICATIONS: Include amlodipine, aspirin, atorvastatin, spironolactone, Xarelto, quetiapine, pramipexole, metformin, lamotrigine, gabapentin. LABORATORY STUDIES: On admission, patient's white count was 13.2, hemoglobin 16, MCV 87, platelets 221,000. BUN and creatinine are 19 and 1.3. LFTs were satisfactory, AST 15, ALT 28, alkaline phosphatase 89, total protein 8.0, lipase 73. Troponins were less than 0.015. Urinalysis is essentially unremarkable except for blood glucose. The patient had a normal appearing chest x-ray. On imaging, the CT scan suggested stones in the gallbladder neck but the gallbladder was otherwise normal. One curious finding is portal venous gas that is adjacent to the stomach of unclear origin. There is no evidence of free air. The patient also on ultrasound showed cholelithiasis, no evidence for acute cholelithiasis and again evidence of portal venous gas. The patient was started on Flagyl and Cipro in the OR. IMPRESSION: A patient with recurrent epigastric abdominal pain of unclear origin, prior diagnostic studies according to the patient failed to reveal any obvious source. There is evidence of gallstones in the neck of the gallbladder, although LFTs are normal. There is no evidence for acute cholecystitis in the gallbladder is not reported as distended. The differential diagnosis of this includes peptic ulcer disease, gastritis with his epigastric symptoms. There is no evidence for pancreatitis on the patient's imaging study or by biochemistry. There is no comment of diverticular disease or diverticulitis as a potential source for the portal air. There is no description of aneurysmal dilation. I made the following recommendations. I would observe the patient overnight with and if does well and is acceptable with cardiology from a cardiovascular standpoint assuming there is no evidence for myocardial injury as a source of the patient's abdominal pain, we will plan tentatively for an upper endoscopy. The patient is somewhat hesitant about doing this study again as he reports that this has been done several times in the past with these attacks but is unsure. It is possible that the stones in the neck of the gallbladder are occasionally symptomatic producing these symptoms, although the source of this reported portal air remains uncertain. There is no evidence for perforation. Would continue PPI therapy and further recommendations once the upper endoscopy is completed. At some point a repeat imaging to exclude persistence of this portal air would be helpful. Surgical consideration for cholecystectomy at some point, although this needs to be in concert with his other comorbidities and cardiac status. All questions answered for the patient. We will keep the patient n.p.o. and plan for an EGD on afternoon. Thank you for allowing me to participate in this patient's care. [facility]
== END 2016-07-13 21:35 | disposition home or self-care (01) | DRG 392 ==
LOC: ENRESERVTM → ENRESERVDT → EDBD 07:12 → C.EDB 07:13 → C.2T 17:20
PROVIDERS: ADMIT Student in an Organized Health Care Education/Training Program; ATTEND Family Medicine
DX: R10.9 Unspecified abdominal pain (principal); Z68.42 Body mass index [BMI] 45.0-49.9, adult; K80.20 Calculus of gallbladder without cholecystitis without obstruction; R11.2 Nausea with vomiting, unspecified; I87.8 Other specified disorders of veins; E11.40 Type 2 diabetes mellitus with diabetic neuropathy, unspecified; I48.91 Unspecified atrial fibrillation; I10 Essential (primary) hypertension; E78.5 Hyperlipidemia, unspecified; E78.00 Pure hypercholesterolemia, unspecified; G25.81 Restless legs syndrome; I25.10 Atherosclerotic heart disease of native coronary artery without angina pectoris; G47.30 Sleep apnea, unspecified; E66.01 Morbid (severe) obesity due to excess calories; F39 Unspecified mood [affective] disorder; I25.2 Old myocardial infarction; Z95.5 Presence of coronary angioplasty implant and graft; Z95.1 Presence of aortocoronary bypass graft; Z87.891 Personal history of nicotine dependence; Z79.84 Long term (current) use of oral hypoglycemic drugs; Z79.02 Long term (current) use of antithrombotics/antiplatelets; Z79.82 Long term (current) use of aspirin; Z79.899 Other long term (current) drug therapy

== ENCOUNTER → 2016-08-21 | Outpatient (CLI) | payer BC ==
[~2016-08-21] MED LIST changes: +CPR500 PO; +QUET-115 PO; -SRQ100 PO
[2016-08-21 13:28] LABS: ESTIMATED AVERAGE GLUCOSE 171 mg/dl; HA1C FLAG Normal (Normal)
[2016-08-21 14:10] LABS: ALT/SGPT 25 U/L (12-78); BLOOD UREA NITROGEN 18 mg/dl (7-18); BUN/CREATININE RATIO 18.1 (10-20); CALCIUM 9.3 mg/dl (8.5-10.1); CARBON DIOXIDE 23 mmol/L (21-32); CHLORIDE 104 mmol/L (98-107); CHOLESTEROL 121 mg/dl (0-200); GLUCOSE 187 mg/dl (70-99); POTASSIUM 4.3 mmol/L (3.5-5.1); SODIUM 137 mmol/L (136-145); TRIGLYCERIDES 85 mg/dl (0-150); VERY LOW DENSITY LIPOPROT CALC 17 mg/dl
[2016-08-21 14:19] LABS: ALKALINE PHOSPHATASE 86 U/L (45-117); AST/SGOT 17 U/L (15-37); CHOLESTEROL/HDL RATIO 3.2; HDL CHOLESTEROL 38 mg/dl; LDL CHOLESTEROL CALCULATED 66 mg/dl
== END | disposition home or self-care (01) ==
LOC: C.LAB1850 10:48
PROVIDERS: ATTEND Internal Medicine Cardiovascular Disease
DX: E78.5 Hyperlipidemia, unspecified (principal); I10 Essential (primary) hypertension; I25.10 Atherosclerotic heart disease of native coronary artery without angina pectoris; R73.03 Prediabetes